=== PATIENT | female | born 1950 | race African-American/Black ===

== ENCOUNTER 2017-02-08 15:33 | Inpatient (IN) | payer MEDICARE, MEDICAID ==
--- NOTE | 2017-02-08 16:11 | RAD ---
SINGLE VIEW OF THE CHEST: 02/08/17 COMPARISON: 03/27/16 HISTORY: Fall four days ago with heart racing. FINDINGS: Single view of the chest shows an enlarged but stable cardiomediastinal silhouette. The pacemaker is unchanged in position. There is no evidence of consolidation, mass, or pleural effusion. IMPRESSION: Cardiomegaly without evidence of acute cardiopulmonary disease. POS: [facility]
[2017-02-08 16:27] LABS: #Eosinphils 0.1 thou/uL (0.0-0.7); #Lymphocytes 1.4 thou/uL (1.20-3.40); #Monocytes 0.7 thou/uL (0.11-0.59); #Neutrophils 3.9 thou/uL (1.40-6.50); %Basophils 0.4 % (0.0-1.0); %Eosinophils 2.2 % (0.0-10.0); %Lymphocytes 22.8 % (21.0-51.0); %Monocytes 11.7 % (0.0-10.0); Hematocrit 38.4 % (36.0-47.0); Mean Platelet Volume 9.6 fL (7.4-10.4); White Blood Cell (WBC) Count 6.1 thou/uL (4.8-10.8)
[2017-02-08 16:51] LABS: ALT (SGPT) 2919 U/L (8-55); AST (SGOT) 1760 U/L (5-34); Alkaline Phosphatase 171 U/L (40-150); Anion Gap 14 mmol/L (10-20); BUN (Urea Nitrogen) 95 mg/dL (9.8-20.1); Bilirubin, Total 1.4 mg/dL (0.2-1.2); CK (CPK) 632 U/L (29-168); Calc. Creatinine Clearance 0 mL/min (70-130); Calcium 8.6 mg/dL (7.8-10.44); Carbon Dioxide 28 mmol/L (23-31); Chloride 96 mmol/L (98-107); Estimated GFR-MDRD 12; Globulin 3.3 g/dL (2.4-3.5); Protein, Total 6.3 g/dL (6.0-8.3)
[2017-02-08 16:56] LABS: Troponin I 0.089 ng/mL (< 0.028)
[2017-02-08 17:21] LABS: Bilirubin Negative (Negative); Blood, Urine Negative (Negative); Glucose, Urine (Dipstick) Negative (Negative); Ketone, Urine Negative (Negative); Nitrite Negative (Negative); Protein, Urine (Dipstick) Negative (Neg-Trace)
[2017-02-08 17:23] LABS: Bacteria/HPF None Seen HPF (None Seen); RBC/HPF 0-3 HPF (0-3); Squamous Epithelial 0-3 HPF (0-3); WBC/HPF 0-3 HPF (0-3)
[2017-02-08] MEDS ORDERED: Ondansetron ODT 4 MG TAB PO PRN (20:25)
[2017-02-08] MEDS ORDERED: HumaLOG 300 UNITS/3 ML VIAL SC PRN (20:25)
[2017-02-08] MEDS ORDERED: HYDROcodone/Acetaminophen 5/325 mg Tablet PO PRN (20:25)
[2017-02-08] MEDS ORDERED: Dextrose 5% in Water 1,000 ML IV PRN (20:25)
[2017-02-08] MEDS ORDERED: HYDROcodone/Acetaminophen 10/325 mg Tablet PO PRN (20:25)
[2017-02-08] MEDS ORDERED: Dextrose 50% Abboject 50 ML SYRINGE SLOW IVP PRN (20:25)
[2017-02-08] MEDS ORDERED: Acetaminophen 325 MG TAB PO PRN (20:25)
[2017-02-08 20:38] VITALS: BMI 21.4
--- NOTE | 2017-02-08 20:42 | ULT ---
ULTRASOUND ABDOMEN LIMITED: (RIGHT UPPER QUADRANT) 02/08/17 HISTORY: 66-year-old female with right upper quadrant abdominal pain. FINDINGS: Gallbladder: Wall thickness within normal limits, 2 mm. No gallstones identified. No sonographic Mur phy's sign or pericholecystic edema. Questionable minimal sludge. Common duct: 7 mm Liver: Normal size and echogenicity. Questionable dilation of the intrahepatic biliary ducts. Pancreas: Poorly visualized. Right kidney: No hydronephrosis. Several cysts. Largest one is 2 x 1.5 x 1.5 cm at the upper/mid mirza e. Right kidney is also poorly visualized. IMPRESSION: 1. Dilation of the common duct to 7 mm caliber (and questionable dilation of the entire biliary tree). Recommend correlation with serum bilirubin levels to rule out the possibility of common bile duct obstruction. 2. No evidence of cholelithiasis or acute cholecystitis. MAC Puri POS: [facility]
[2017-02-08] MEDS: Sodium Chloride 0.9% 1,000 ML IV SCH (20:43)
[2017-02-08] MEDS: clonazePAM 1 MG TAB PO SCH (21:14)
[2017-02-08 21:41] LABS: Troponin I 0.075 ng/mL (< 0.028)
--- NOTE | 2017-02-08 23:18 | HP ---
DATE OF ADMISSION: 02/08/2017 PRIMARY CARE PHYSICIAN: Dr. Giles. PRIMARY PIPE SMOKER MACHINE OPERATOR: Dr. Fuentes. PRIMARY RENAL: Dr. Godoy. CHIEF COMPLAINT: \\\\"My heart is racing.\\\\" HISTORY OF PRESENT ILLNESS: Ms. Gabriel is a pleasant 66-year-old -[place] female who this m orning was lying in bed and felt like her heart just started to race on its own. She felt bad for t he rest of the day and so was brought to the emergency department for evaluation. She went to an [facility] emergency department after she fell and was dizzy. 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 She d id have a CT scan of the head that was negative, she had elevated LFTs and creatinine and was sent h ere for further workup. The patient denies any fevers or chills, no chest pain or shortness of breath at present. No nausea and vomiting, no diarrhea or constipation, no abdominal pain. PAST MEDICAL HISTORY: 1. Cerebrovascular disease with history of remote cerebrovascular accident. 2. Diabetes mellitus type 2, non-insulin dependent. 3. Hypertension. 4. Chronic anemia. 5. Hyperlipidemia, primary cholesterol. 6. Systolic congestive heart failure secondary to nonischemic cardiomyopathy with last ejection fra ction of 20% to 25% with severe global hypokinesis. 7. Gastroesophageal reflux disease. PAST SURGICAL HISTORY: Includes left enucleation, bilateral tubal ligation, left oophorectomy, bila teral corneal transplants, and AICD placement. HOME MEDICATIONS: 1. Clonazepam 0.5 mg p.o. at bedtime. 2. Vitamin D 1000 units daily. 3. Geodon 40 mg p.o. at bedtime. 4. Bupropion XR 300 mg p.o. daily. 5. Plavix 75 mg daily. 6. Lipitor 40 mg p.o. at bedtime. 7. Tradjenta 5 mg p.o. daily. 8. Lasix, she was on 40 in the morning and 80 in the evening, however, states she was decreased to 40 once a day by Dr. Godoy after she had labs that showed an increased creatinine. 9. Atorvastatin 40 mg p.o. at bedtime. 10. Isosorbide mononitrate extended release 120 mg daily. 11. Coreg 25 mg p.o. b.i.d. 12. Zoloft 100 mg daily. 13. Iron sulfate 325 mg daily. 14. Aspirin 81 mg daily. ALLERGIES: NKDA. FAMILY HISTORY: Negative for clotting or bleeding disorder, no immune dysfunction. SOCIAL HISTORY: Negative for habits x3. Her son accompanies her to the ER. REVIEW OF SYSTEMS: A 10-point review of systems was performed and negative for all other systems ex cept as stated per HPI. PHYSICAL EXAMINATION: VITAL SIGNS: Temperature 98.3, pulse 87, blood pressure initially was listed low, but per ER docume ntation showed blood pressure 136/67, respiratory rate 19, and satting 96% on room air. GENERAL: She is awake. She is alert. She is oriented x3. She is a chronically ill-appearing Afri can-[place] female who is lying in bed comfortably. HEENT: She is normocephalic, atraumatic, she has left enucleation, right pupil is 2-3 mm, round, an d reactive to light. Mucous membranes are moist. She has no visible lesions. No thrush. NECK: Supple, there is no lymphadenopathy, JVD or thyromegaly with normal carotid upstroke. LUNGS: Clear anteriorly. There are no wheezes, no rales, no rhonchi. CARDIOVASCULAR: She has normal S1 and S2, no S3, S4. She has a regular rhythm and normal rate. Th ere are no audible murmurs. ABDOMEN: Soft. It is nontender. She has no rebound, rigidity or guarding with normoactive bowel s ounds present in all 4 quadrants. Her extremities show no cyanosis, no clubbing with trace bilatera l pedal edema. SKIN: Warm, moist, and well perfused without any other rashes or lesions. MUSCULOSKELETAL: Normal to inspection. There are no inflamed joints and no palpable joint effusion s. LABORATORY DATA: CMP showed a sodium 134, potassium 3.8, chloride 96, bicarbonate 28, BUN 95, creat inine 4.41 up from 2.81 back on 01/24/2017 approximately 2 weeks ago. Liver functions showed alkaline phosphatase of 171, AST of 160, ALT of 2919, total bilirubin 1.4, al bumin of 3.0 and total protein 6.3. Troponin I was barely elevated at 0.089. CK elevated at 622 an d MB normal at 2.8. CBC showed a white count normal at 6.1, hemoglobin 12.1, hematocrit 38.4, and p latelets of 129,000. Her chest x-ray showed cardiomegaly, but no other acute cardiopulmonary change s. ASSESSMENT AND PLAN: 1. Acute kidney injury on chronic kidney disease 4: The patient has an increased BUN and creatinin e ratio: I think certainly she may be intravascular volume depleted secondary to diuretics. We herminia l start her on IV fluids at 70 mL per hour. We will ask Dr. Godoy to see her in the morning, repeat labs in the morning. In the meantime, we will hold her diuretics and her blood pressure medicines u ntil her blood pressure normalizes. 2. Diabetes mellitus type 2. We will hold her Tradjenta. We will use sliding scale insulin for co rrection. 3. Hypertension. Initial blood pressure was low according to the ER note, but I cannot locate thos e, she has been in the mid normal range since then. We will hold her blood pressure medicines until her creatinine improves. 3. Hyperlipidemia. 4. History of nonischemic cardiomyopathy with chronic systolic congestive heart failure: No eviden ce of acute exacerbation. Watch closely given the fact we are given some fluids. 5. Gastroesophageal reflux disease. 6. History of cerebrovascular disease. We will place the patient on admission status as well as Dr. Fonseca to come by and see the patien t per Dr. Fuentes and ask Dr. Godoy to evaluate for acute renal failure. We will recheck labs in the morning, watch the patient on telemetry, and hold all nephrotoxic medications. The patient did have an abdominal ultrasound done in the ER with report currently pending. Again, unsure if this is a p rimary liver problem, there is nothing grossly abnormal on her ultrasound, or whether this is a shoc k liver secondary to hypotension. We will get orthostatics on transfer to the floor.
[2017-02-09 06:02] LABS: #Basophils 0.1 thou/uL (0.0-0.2); #Eosinphils 0.2 thou/uL (0.0-0.7); #Lymphocytes 1.6 thou/uL (1.20-3.40); #Monocytes 0.8 thou/uL (0.11-0.59); #Neutrophils 3.1 thou/uL (1.40-6.50); %Basophils 1.1 % (0.0-1.0); %Lymphocytes 27.5 % (21.0-51.0); %Monocytes 13.4 % (0.0-10.0); Mean Platelet Volume 9.8 fL (7.4-10.4); Red Blood Cell (RBC) Count 4.32 mill/uL (4.20-5.40); White Blood Cell (WBC) Count 5.7 thou/uL (4.8-10.8)
[2017-02-09 06:19] LABS: ALT (SGPT) 2480 U/L (8-55); AST (SGOT) 1173 U/L (5-34); Alkaline Phosphatase 168 U/L (40-150); Anion Gap 16 mmol/L (10-20); BUN (Urea Nitrogen) 89 mg/dL (9.8-20.1); Bilirubin, Total 1.3 mg/dL (0.2-1.2); Calc. Creatinine Clearance 13 mL/min (70-130); Calcium 8.3 mg/dL (7.8-10.44); Carbon Dioxide 22 mmol/L (23-31); Chloride 101 mmol/L (98-107); Estimated GFR-MDRD 15; Globulin 3.4 g/dL (2.4-3.5); Protein, Total 6.3 g/dL (6.0-8.3)
[2017-02-09 06:23] LABS: Troponin I 0.077 ng/mL (< 0.028)
[2017-02-09] MEDS: Pantoprazole 40 MG GRANULES PACKET PO SCH (08:31)
[2017-02-09] MEDS: Bupropion 150 MG XL TAB PO SCH (08:31)
[2017-02-09] MEDS: Clopidogrel Bisulfate 75 MG TAB PO SCH (08:32)
[2017-02-09] MEDS: Carvedilol 25 MG TAB PO SCH ×2 (08:32→23:42)
[2017-02-09] MEDS: Sodium Chloride 0.9% 1,000 ML IV SCH (08:33)
[2017-02-09] MEDS ORDERED: Non-Formulary Item 1 EACH (Bupropion Hcl [Bupropion Hcl Xl] 300 MG) PO SCH (09:00)
[2017-02-09] MEDS ORDERED: ISOSORBIDE MONONITRATE PO SCH (09:00)
--- NOTE | 2017-02-09 09:48 | PDOC.PN ---
- Subjective Encounter Start Date: 02/09/17 Encounter Start Time: 09:25 Pt seen and exmained, chart reviewed. no acute events overnight. no F/c, no n/V/D/C. States she has been out of bed , no dizziness, no presyncope or syncope. no CP or SOB. Feels weak. Dsicused case with Dr Godoy, he provided additional history on non-adherence. 10 point ROS performed and neg for all systems except as above - Objective Resuscitation Status: Resuscitation Status FULL:Full Resuscitation MAR Reviewed: Yes Vital Signs & Weight: Vital Signs (12 hours) Temp Pulse Resp BP Pulse Ox 02/09/17 06:57 87 16 139/72 93 L 02/09/17 04:00 98.7 F 84 18 145/72 H 95 I&O: 02/08/17 02/09/17 02/10/17 06:59 06:59 06:59 Intake Total 932 Output Total 500 Balance 432 Result Diagrams: 02/09/17 05:26 02/09/17 05:26 Additional Labs: Accuchecks 02/09/17 02/08/17 05:52 20:42 POC Glucose 130 H 124 H Radiology Reviewed by me: Yes EKG Reviewed by me: Yes Phys Exam - Physical Examination Constitutional: NAD HEENT: moist MMs, sclera anicteric, oral pharynx no lesions Neck: no nodes, no JVD, supple, full ROM Respiratory: no wheezing, no rales, no rhonchi faint bibasilar crackles, stable Cardiovascular: RRR, no rub HSM LUSB present 3/6 Gastrointestinal: soft, non-tender, no distention, positive bowel sounds Musculoskeletal: no edema, pulses present Neurological: non-focal, normal sensation, moves all 4 limbs Lymphatic: no nodes Psychiatric: normal affect, A&O x 3 Skin: no rash, normal turgor, cap refill <2 seconds Dx/Plan (1) JOVANY (acute kidney injury) Code(s): N17.9 - ACUTE KIDNEY FAILURE, UNSPECIFIED Status: Acute Comment: Cr improved, almost back to tram. Dr Godoy to see. continue gentle hydration for a few more hours then stop. AM labs (2) CKD (chronic kidney disease), stage III Code(s): N18.3 - CHRONIC KIDNEY DISEASE, STAGE 3 (MODERATE) Status: Chronic (3) Heart palpitations Code(s): R00.2 - PALPITATIONS Status: Acute Comment: none further, negative tele. (4) Increased liver enzymes Code(s): R74.8 - ABNORMAL LEVELS OF OTHER SERUM ENZYMES Status: Acute Comment: LFTs better today (5) Chronic systolic (congestive) heart failure Code(s): I50.22 - CHRONIC SYSTOLIC (CONGESTIVE) HEART FAILURE Status: Chronic Comment: stable. watch closely while on IV fluids. Requested cardiology consult for palitatiosn and history. Has AICD in, may need to interrogate (6) DM2 (diabetes mellitus, type 2) Status: Chronic Qualifiers: Diabetes mellitus complication status: with kidney complications Diabetes mellitus complication detail: with chronic kidney disease Diabetes mellitus termite helper insulin use: with [facility] use Chronic kidney disease stage: stage 3 (moderate) Qualified Code(s): E11.22 - Type 2 diabetes mellitus with diabetic chronic kidney disease; N18.3 - Chronic kidney disease, stage 3 ( moderate); N18.3 - Chronic kidney disease, stage 3 (moderate); Z79.4 - terminal makeup operator (current) use of insulin; Z79.4 - half-way (current) use of insulin; Z79.4 - half-way (current) use of insulin; Z79.4 - terminal makeup operator (current) use of insulin (7) HTN (hypertension) Code(s): I10 - ESSENTIAL (PRIMARY) HYPERTENSION Status: Chronic Qualifiers: Hypertension type: essential hypertension Qualified Code(s): I10 - Essential (primary) hypertension (8) Anemia associated with chronic renal failure Code(s): D63.1 - ANEMIA IN CHRONIC KIDNEY DISEASE Status: Chronic - Plan cont current plan of care, PT/OT * .
[2017-02-09] MEDS ORDERED: Lorazepam 0.5 MG TAB PO SCH (11:00)
--- NOTE | 2017-02-09 13:07 | RAD ---
SINGLE VIEW OF CHEST: Date: 02/09/17 COMPARISON: 02/08/17. HISTORY: Shortness of breath. FINDINGS: Single view of the chest shows an enlarged but stable cardiomediastinal silhouette. The pacemaker is unchanged in position. There is no evidence of consolidation, mass, or pleural effusion. IMPRESSION: Cardiomegaly without evidence of acute cardiopulmonary disease. POS: [facility]
--- NOTE | 2017-02-09 15:05 | CON ---
DATE OF CONSULTATION: 02/09/2017 NEPHROLOGY CONSULTATION REASON FOR CONSULTATION: Elevated creatinine. HISTORY OF PRESENT ILLNESS: This is a very pleasant 66-year-old female being seen at [facility] , presented to the hospital with feeling of tachycardia. The patient's creatinine was 4.4 on admiss ion yesterday, improved to 3.5, prior baseline between 2s and 3s and has been gradually worsening an d was admitted for cardiorenal syndrome. PAST MEDICAL HISTORY: Significant for chronic kidney disease, hypertension, anemia, history of stro ke, EF of 20%, GERD, history of left eye enucleation, tubal ligation, oophorectomy, cornea transplan t, and AICD. HOME MEDICATIONS: List reviewed. HOSPITAL MEDICATIONS: List reviewed. REVIEW OF SYSTEMS: A 15-point review of systems was performed and was negative except for positives noted above. GENERAL: Weakness- HEAD: Headache- NECK: No swelling or lumps. NOSE: No epistaxis or discharge. EYES: No diplopia or pain. RESPIRATORY: Dyspnea- CARDIOVASCULAR: Chest pain- GASTROINTESTINAL: Nausea- /TRAFFIC ADMINISTRATOR: Hematuria- MUSCULOSKELETAL: No joint pain. NEUROPSYCHIATIC SYSTEMS: No suicidal ideation. No ideation. SKIN: Denies any rash or ulcer. CONSTITUTIONAL: No fever or chills. PHYSICAL EXAMINATION: GENERAL: Patient is awake, alert. VITAL SIGNS: Afebrile, pulse 87, breathing at 16, blood pressure 139/72. GENERAL APPEARANCE AND MENTAL STATUS: Fair. HEAD/NECK: Normocephalic. Atraumatic. EYES: EOMI. No deformity. EARS: Clear. No ulcers. NOSE: Intact. No lesions. MOUTH: Clear. No discharge. THROAT: Clear. No exudate. LUNGS: Clear. No crackles. CARDIAC: S1, S2. No rub. ABDOMEN: Benign. BS+. GENITALIA/RECTUM: Dailey absent. BACK/EXTREMITIES: Edema 0+ Ulcer- NEUROLOGICAL: Alert and motor intact. SKIN: Rash- Bruise- LYMPHATICS: Edema- Ulcer- LABORATORY DATA: Show creatinine 3.1. ASSESSMENT AND RECOMMENDATIONS: 1. Acute kidney injury with chronic kidney disease stage IV, improved. 2. Hypertension, stable. 3. Anemia, stable. 4. Metabolic acidosis, stable. No indication for dialysis. We will follow along. 5. Medications based on glomerular filtration rate are appropriate.
--- NOTE | 2017-02-09 15:35 | CON ---
DATE OF CONSULTATION: 02/09/2017 REASON FOR CONSULTATION: Racing heart. PRIMARY CARE PROVIDER: Dr. Terry. HISTORY OF PRESENT ILLNESS: Ms. Gabriel is an unfortunate 66-year-old woman who is a patient of Dr. Nury Fuentes. She has a history of nonischemic cardiomyopathy. She recently states she had shortn ess of breath as well as racing heart. Her ICD was interrogated with no significant changes noted. No significant dysrhythmias are present. She states her shortness of breath has markedly improved. PAST MEDICAL HISTORY: CVA, diabetes mellitus, hypertension, hyperlipidemia, nonischemic cardiomyopa thy. PAST SURGICAL HISTORY: BTL, oophorectomy, AICD placement. HOME MEDICATIONS: Include clonazepam, Plavix, Lipitor, Tradjenta, Geodon, Lasix, iron, Zoloft, Core g, isosorbide, and aspirin. ALLERGIES: None. SOCIAL HISTORY: No current tobacco or alcohol use. REVIEW OF SYSTEMS: Ten-point review of systems is reviewed and as above, otherwise negative. PHYSICAL EXAMINATION: GENERAL: Patient is a pleasant female who is in no acute distress. The patient appears her stated age. VITAL SIGNS: Blood pressure 154/75, pulse 77 and temperature 97.3. NEUROLOGIC: The patient is alert and oriented times 3 with no focal neurologic deficits. HEENT: Sclerae without icterus. Mouth has moist mucous membranes with normal pallor. NECK: No JVD. Carotid upstroke brisk. No bruits bilaterally. LUNGS: Clear to auscultation with unlabored respirations. BACK: No scoliosis or kyphosis. CARDIAC: Regular rate and rhythm with normal S1 and S2. No S3 or S4 noted. No significant rubs, murmurs, thrills, or gallops noted throughout the precordium. PMI is not displaced. There is no parasternal heave. ABDOMEN: Soft, nontender, nondistended. No peritoneal signs present. No hepatosplenomegaly. No abnormal striae. EXTREMITIES: 2+ femoral and 2+ dorsalis pedis pulses. No cyanosis, clubbing, or edema. SKIN: No gross abnormalities. PERTINENT LABS: Urine culture positive for beta-hemolytic strep, hemoglobin 12.5, creatinine 3.59 with a GFR of 15, ALT/AST of 11/73 and 24/80 respectively. Peak troponin 0.077. IMPRESSION: 1. Racing rate. 2. Shortness of breath. 3. Nonischemic cardiomyopathy. RECOMMENDATIONS: Ms. Gabriel recent ICD was interrogated. It felt normal function. There was some adjustment in her A-V interval for improvement in her biventricular pacing. Lasix has been held due to elevated creatinine. She does appear somewhat volume contracted. Otherwise, I have no further recommendations.
[2017-02-09] MEDS ORDERED: ISOVUE-370 76%-LOCM 1 ML ONE (16:12)
[2017-02-09] MEDS ORDERED: Furosemide 40 MG/4 ML VIAL ONE ×2 (20:46)
[2017-02-09] MEDS ORDERED: ZIPRASIDONE HCL 40 MG PO SCH (21:00)
[2017-02-09] MEDS ORDERED: Furosemide 100 MG/10 ML VIAL SLOW IVP SCH (21:00)
[2017-02-09 21:11] LABS: Oxyhemoglobin 93.4 % (94.0-97.0); Sodium 137 mmol/L (135-148)
[2017-02-09 21:12] LABS: Mode NC
--- NOTE | 2017-02-09 21:24 | PRG ---
DATE OF SERVICE: 02/09/2017 SUBJECTIVE: This patient code carlos was called, because she became hypoxic. Earlier in the day ceferino patricio I was consulted, the patient's nurse had just given her the IV Lasix 80 mg which I have ordered. Chest x-ray and BNP are pending. The fluids were stopped on her yesterday. Right now, the sats hav e come back to 97 on 2 liters. I will be transferring her to a higher level of care either IMCU or ICU for closer monitoring. She is comfortable right now. We will monitor the BNP, chest x-ray and we will work with the consultants with Cardiology and Nephrology for further taking care of her. Chika snell exam did show some bibasilar rales and some coarse breath sounds. Again, she is satting 97% on 2 liters right now and she is doing well. I will do ABG and follow the results and give her as neede d neb treatments.
[2017-02-09 21:35] LABS: #Basophils 0.1 thou/uL (0.0-0.2); #Eosinphils 0.1 thou/uL (0.0-0.7); #Lymphocytes 2.1 thou/uL (1.20-3.40); #Monocytes 0.7 thou/uL (0.11-0.59); #Neutrophils 5.4 thou/uL (1.40-6.50); %Basophils 0.8 % (0.0-1.0); %Eosinophils 0.7 % (0.0-10.0); %Lymphocytes 25.1 % (21.0-51.0); %Monocytes 8.3 % (0.0-10.0); Hematocrit 45.5 % (36.0-47.0); Mean Platelet Volume 9.8 fL (7.4-10.4); Red Blood Cell (RBC) Count 4.81 mill/uL (4.20-5.40); White Blood Cell (WBC) Count 8.2 thou/uL (4.8-10.8)
[2017-02-09] MEDS ORDERED: Fentanyl 20 MCG/ML 250 ML ONE (21:37)
[2017-02-09 21:49] LABS: ALT (SGPT) 2351 U/L (8-55); AST (SGOT) 880 U/L (5-34); Alkaline Phosphatase 195 U/L (40-150); Anion Gap 18 mmol/L (10-20); BUN (Urea Nitrogen) 83 mg/dL (9.8-20.1); Bilirubin, Total 1.4 mg/dL (0.2-1.2); Calc. Creatinine Clearance 14 mL/min (70-130); Calcium 8.6 mg/dL (7.8-10.44); Carbon Dioxide 22 mmol/L (23-31); Chloride 101 mmol/L (98-107); Estimated GFR-MDRD 16; Globulin 4.1 g/dL (2.4-3.5); Protein, Total 7.4 g/dL (6.0-8.3)
[2017-02-09 21:52] LABS: Troponin I 0.052 ng/mL (< 0.028)
[2017-02-09 22:16] LABS: Oxyhemoglobin 97.3 % (94.0-97.0); Sodium 138 mmol/L (135-148)
[2017-02-09 22:17] LABS: Vent YES
[2017-02-09 22:18] LABS: Mechanical Tidal Volume 400 ml; Mode SIMV; Pressure Support 10 cmH2O
--- NOTE | 2017-02-09 22:23 | RAD ---
RADIOGRAPH CHEST 1 VIEW: Date: 02/09/2017 Time: 8:52 p.m. HISTORY: A 66-year-old female with respiratory distress. COMPARISON: 02/09/2017 at 10:47 a.m. FINDINGS: Cardiomegaly. Multilead left subclavian AICD. Pulmonary vascular engorgement. No willam pulmonary alveolar edema or consolidation. Mild blunting of the lateral costophrenic angles bilaterally. No pneumothorax. No consolidation. No interval change. IMPRESSION: 1. Cardiomegaly and borderline congestive changes. 2. Multilead automatic implantable cardioverter/defibrillator. 3. Small bilateral pleural effusions versus pleural thickening. 4. No interval change since earlier this morning. MAC [] POS: [facility]
--- NOTE | 2017-02-09 23:15 | RAD ---
RADIOGRAPH CHEST 1 VIEW: Date: 02/09/2017 Time: 9:27 p.m. HISTORY: A 66-year-old female, in respiratory distress, status post intubation. COMPARISON: 02/09/2017 at 8:52 p.m. FINDINGS: This is a supine image, which would be insensitive for pneumothorax detection. There is a new defib rillation paddle overlying the left lower lung zone, partially obscuring it. An endotracheal tube h as been placed, with the distal tip overlying the mid thoracic trachea. A right subclavian central venous catheter has been placed, with the distal tip overlying the SVC/right atrial junction. No ca rdiomegaly. There is deeper inspiration on the current study, and the lungs appear more lucent on t he current study, with no pulmonary edema or consolidation. Again noted is the multi-lead left subc lavian AICD. A nasogastric tube has been placed with the SidePort slightly inferior to the diaphrag m. IMPRESSION: 1. Status post intubation. 2. Status post nasogastric tube placement. 3. Status post right subclavian central venous catheter placement. 4. No acute cardiopulmonary findings. MAC [] POS: [facility]
[2017-02-09] MEDS: clonazePAM 1 MG TAB PO SCH (23:42)
[2017-02-09] MEDS: Fluticasone Propionate Nasal Spray 16 gm Bottle NASAL SCH (23:42)
--- NOTE | 2017-02-09 23:47 | CT ---
CT BRAIN NONCONTRAST: DATE: 02/09/2017 TIME: 10:31 p.m. HISTORY: A 66-year-old female with acute altered mental status. COMPARISON: 09/10/2015 FINDINGS: On the most inferior image slices, there is a new finding of a tube, either an orogastric tube or an endotracheal tube, which is transversely oriented in the nasopharyngeal airway, only partially imag ed. There is no acute calvarial fracture. No evidence of acute intraaxial or extraaxial hemorrhage. No obstructive hydrocephalus, mass effect, midline shift, or extraaxial fluid collection. Multiple mo derate sized and small regions of encephalomalacia and gliosis, including right parasagittal upper p osterior frontal lobe, right upper parietal lobe, left lateral frontal lobe, and right lateral infer ior frontal lobe. No interval change in the intracranial contents since 09/10/2015. IMPRESSION: 1. Multiple bilateral old cerebral infarctions, most of them in the bilateral middle cerebral arter y territories. 2. No acute intracranial findings. 3. A tube is looped in the nasopharyngeal airway, only partially imaged. MAC Puri POS: [facility]
--- NOTE | 2017-02-10 | CT ---
CTA THORAX WITH CONTRAST: DATE: 02/09/2017 TIME: 10:35 p.m. (Computed Tomographic Angiography, chest (noncoronary) with contrast material, and image post proces sing) (PE protocol) HISTORY: A 66-year-old female, in respiratory failure. TECHNIQUE: IV injection of iodinated contrast: Isovue. Scan acquisition timing attempted to coincide with iodinated contrast bolus reaching maximal density in pulmonary arteries. 3D MIP reconstructions. FINDINGS: Endotracheal tube distal tip is at the mid thoracic trachea. NG tube is in the stomach. No pneumot horax, pulmonary edema, pleural effusion, or consolidation. A thin layer of subsegmental atelectasi s abutting the right posterior pleural surface. Contrast material in numerous collateral blood vess els, circumferentially, around the cervical spine and upper thoracic spine, and left supraclavicular region and left shoulder. No pulmonary thromboembolism. No thoracic aortic aneurysm. Not enough IV contrast in the aorta to evaluate for dissection. Multilead AICD. Right subclavian central veno us catheter. No mediastinal or hilar lymphadenopathy. IMPRESSION: 1. No pulmonary thromboembolism. 2. Automatic implantable cardioverter/defibrillator. 3. Endotracheal tube, nasogastric tube, and right subclavian central venous catheter. 4. Multiple collateral vessels suggest high grade stenosis in the left upper extremity or upper med iastinal venous system. isa[] POS: [facility]
[2017-02-10] MEDS ORDERED: Fentanyl 20 MCG/ML 250 ML IVPB SCH ×2 (00:23→00:45)
[2017-02-10] MEDS ORDERED: Propofol 1,000 MG/100 ML VIAL IV PRN ×2 (00:23→00:45)
[2017-02-10] MEDS ORDERED: Lorazepam 2 MG/ML VIAL SLOW IVP PRN ×2 (00:23→00:45)
[2017-02-10] MEDS ORDERED: DISCONTINUE PREVIOUS NARCOTIC PAIN MEDICATIONS AND BENZODIAZEPINES FS SCH ×2 (00:23→00:45)
[2017-02-10] MEDS ORDERED: HYDROcodone/Acetaminophen 10/325 mg Tablet PO PRN (00:40)
[2017-02-10] MEDS ORDERED: HYDROcodone/Acetaminophen 5/325 mg Tablet PO PRN (00:40)
[2017-02-10 06:17] LABS: #Lymphocytes 2.3 thou/uL (1.20-3.40); #Monocytes 1.2 thou/uL (0.11-0.59); #Neutrophils 7.4 thou/uL (1.40-6.50); %Basophils 0.4 % (0.0-1.0); %Eosinophils 0.4 % (0.0-10.0); %Lymphocytes 21.2 % (21.0-51.0); %Monocytes 10.6 % (0.0-10.0); Hematocrit 40.6 % (36.0-47.0); Mean Platelet Volume 10.1 fL (7.4-10.4); Red Blood Cell (RBC) Count 4.46 mill/uL (4.20-5.40); White Blood Cell (WBC) Count 10.9 thou/uL (4.8-10.8)
[2017-02-10 06:24] LABS: ALT (SGPT) 1940 U/L (8-55); AST (SGOT) 706 U/L (5-34); Alkaline Phosphatase 167 U/L (40-150); Anion Gap 17 mmol/L (10-20); BUN (Urea Nitrogen) 86 mg/dL (9.8-20.1); Bilirubin, Total 1.7 mg/dL (0.2-1.2); Calc. Creatinine Clearance 14 mL/min (70-130); Calcium 8.5 mg/dL (7.8-10.44); Carbon Dioxide 22 mmol/L (23-31); Chloride 103 mmol/L (98-107); Estimated GFR-MDRD 17; Globulin 3.5 g/dL (2.4-3.5); Protein, Total 6.5 g/dL (6.0-8.3)
[2017-02-10] MEDS: Bupropion 150 MG XL TAB PO SCH (08:18)
[2017-02-10] MEDS: Pantoprazole 40 MG GRANULES PACKET PO SCH (08:19)
[2017-02-10] MEDS: Clopidogrel Bisulfate 75 MG TAB PO SCH (08:19)
[2017-02-10] MEDS: Carvedilol 25 MG TAB PO SCH ×2 (08:19→20:49)
[2017-02-10] MEDS: Fluticasone Propionate Nasal Spray 16 gm Bottle NASAL SCH ×2 (09:32→21:33)
--- NOTE | 2017-02-10 11:45 | PDOC.PN ---
- Subjective Encounter Start Date: 02/10/17 Encounter Start Time: 11:00 -: non-verbal PT seen on rounds, examined, case discussed iwth Dr Cano this mornign, discussed with Dr Lozano. PT develped SOB again last night, normal exam, trnasferred to ICU for closer monitoring. ABD showed severe resp acidosis with pH 7.15. Intubated, placed on vent. todya, sedation held, awake, on SIMV. per pulm, pt may have mild unduagnosed underlying COPD. daphney danielsons Pt awake, alert, nodding appropriately. orally intubated. plan to extubate early afternoon - Objective Resuscitation Status: Resuscitation Status FULL:Full Resuscitation MAR Reviewed: Yes Vital Signs & Weight: Vital Signs (12 hours) Temp Pulse Resp BP Pulse Ox 02/10/17 11:19 79 10 L 96 02/10/17 10:20 79 108/60 02/10/17 10:00 9 L 02/10/17 09:10 9 L 02/10/17 08:00 98.5 F 74 23 H 99 02/10/17 06:53 81 137/74 02/10/17 06:00 23 H 02/10/17 04:00 98.3 F 23 H 02/10/17 02:29 81 02/10/17 02:00 23 H 02/10/17 00:00 97.8 F 23 H Weight Weight 118 lb 9.739 oz Most Recent Monitor Data Heart Rate from ECG 79 NIBP 112/59 NIBP BP-Mean 80 Respiration from ECG 16 SpO2 96 I&O: 02/09/17 02/10/17 02/11/17 06:59 06:59 06:59 Intake Total 932 1180 159.3 Output Total 500 810 170 Balance 432 370 -10.7 Result Diagrams: 02/10/17 05:30 02/10/17 05:30 Additional Labs: Accuchecks 02/10/17 02/10/17 02/09/17 10:24 00:28 21:00 POC Glucose 98 115 H 142 H 02/09/17 02/09/17 19:19 16:48 POC Glucose 133 H 125 H Radiology Reviewed by me: Yes EKG Reviewed by me: Yes Phys Exam - Physical Examination Constitutional: NAD HEENT: PERRLA, moist MMs, sclera anicteric, oral pharynx no lesions oral ET tube Neck: no nodes, no JVD, supple, full ROM Respiratory: no wheezing, no rhonchi fine bibasilar crackles Cardiovascular: RRR, no significant murmur, no rub Gastrointestinal: soft, non-tender, no distention, positive bowel sounds Musculoskeletal: pulses present, edema present trace pedal Neurological: non-focal, normal sensation, moves all 4 limbs Lymphatic: no nodes Psychiatric: normal affect Skin: no rash, normal turgor, cap refill <2 seconds Dx/Plan (1) JOVANY (acute kidney injury) Code(s): N17.9 - ACUTE KIDNEY FAILURE, UNSPECIFIED Status: Resolved Comment : back to [facility] around 3. Dr Godoy following (2) CKD (chronic kidney disease), stage III Code(s): N18.3 - CHRONIC KIDNEY DISEASE, STAGE 3 (MODERATE) Status: Chronic (3) Heart palpitations Code(s): R00.2 - PALPITATIONS Status: Acute Comment: none further, negative tele. (4) Increased liver enzymes Code(s): R74.8 - ABNORMAL LEVELS OF OTHER SERUM ENZYMES Status: Acute Comment: LFTs continue to improve, suspect shock liver from IVVD on admit with JOVANY and increase LFTs, fall, orthostasis (5) Chronic systolic (congestive) heart failure Code(s): I50.22 - CHRONIC SYSTOLIC (CONGESTIVE) HEART FAILURE Status: Chronic Comment: stable. no signs of volume overload. off IV fluid,s CT angiogrma showed no evidence of fluid in lungs (6) DM2 (diabetes mellitus, type 2) Status: Chronic Qualifiers: Diabetes mellitus complication status: with kidney complications Diabetes mellitus complication detail: with chronic kidney disease Diabetes mellitus wolf hunter insulin use: with wolf hunter use Chronic kidney disease stage: stage 3 (moderate) Qualified Code(s): E11.22 - Type 2 diabetes mellitus with diabetic chronic kidney disease; N18.3 - Chronic kidney disease, stage 3 ( moderate); N18.3 - Chronic kidney disease, stage 3 (moderate); Z79.4 - nursing home (current) use of insulin; Z79.4 - supervisor esters and emulsifiers (current) use of insulin; Z79.4 - supervisor esters and emulsifiers (current) use of insulin; Z79.4 - supervisor esters and emulsifiers (current) use of insulin (7) HTN (hypertension) Code(s): I10 - ESSENTIAL (PRIMARY) HYPERTENSION Status: Chronic Qualifiers: Hypertension type: essential hypertension Qualified Code(s): I10 - Essential (primary) hypertension (8) Anemia associated with chronic renal failure Code(s): D63.1 - ANEMIA IN CHRONIC KIDNEY DISEASE Status: Chronic (9) Acute hypercapnic respiratory failure Code(s): J96.02 - ACUTE RESPIRATORY FAILURE WITH HYPERCAPNIA Status: Acute Comment: better today. nebs, vent support. extubate per pulm late today. continue nebs (10) COPD (chronic obstructive pulmonary disease) Status: Acute Qualifiers: COPD type: COPD with acute exacerbation Qualified Code(s): J44.1 - Chronic obstructive pulmonary disease with (acute) exacerbation - Plan * .
--- NOTE | 2017-02-10 11:59 | PRG ---
DATE OF SERVICE: 02/10/2017 SUBJECTIVE: This is a 66-year-old female being seen for acute kidney injury. The patient denies an y nausea, vomiting, or chest pain. PHYSICAL EXAMINATION: GENERAL: Patient is awake and alert. VITAL SIGNS: Afebrile, pulse 79, breathing at 16, blood pressure 100/58. GENERAL APPEARANCE AND MENTAL STATUS: Fair. HEAD/NECK: Normocephalic. Atraumatic. EYES: EOMI. No deformity. EARS: Clear. No ulcers. NOSE: Intact. No lesions. MOUTH: Clear. No discharge. THROAT: Clear. No exudate. LUNGS: Clear. No crackles. CARDIAC: S1, S2. No rub. ABDOMEN: Benign. BS+. GENITALIA/RECTUM: Dailey absent. BACK/EXTREMITIES: Edema 0+ Ulcer- NEUROLOGICAL: Alert and motor intact. SKIN: Rash- Bruise- LYMPHATICS: Edema- Ulcer- ASSESSMENT AND RECOMMENDATIONS: 1. Acute kidney injury with chronic kidney disease, stable. 2. Hypertension, stable. 3. Anemia, stable. 4. Congestive heart failure, continue Lasix. 5. Medications based on glomerular filtration rate are appropriate. No indication for dialysis at this time.
[2017-02-10 12:24] LABS: Hematocrit 40.3 % (36.0-47.0); Mean Platelet Volume 9.7 fL (7.4-10.4); Red Blood Cell (RBC) Count 4.38 mill/uL (4.20-5.40); White Blood Cell (WBC) Count 13.1 thou/uL (4.8-10.8)
[2017-02-10 12:42] LABS: Anion Gap 16 mmol/L (10-20); BUN (Urea Nitrogen) 90 mg/dL (9.8-20.1); Calc. Creatinine Clearance 14 mL/min (70-130); Calcium 8.5 mg/dL (7.8-10.44); Carbon Dioxide 24 mmol/L (23-31); Chloride 103 mmol/L (98-107); Estimated GFR-MDRD 16
[2017-02-10 12:46] LABS: Band 1 % (5-11); Burr Cells MODERATE= 6-15 cells (100X) (0-1/hpf); Elliptocytes SLIGHT = 2-5 cells (100X) (0-1/hpf); Neutrophil 63 % (42-75); Ovalocytes MODERATE= 6-15 cells (100X) (0-1/hpf); Polychromasia SLIGHT = 2-3 cells (100X) (0-2/hpf); Reactive Lymphocytes 6 % (0-10); Schistocytes SLIGHT = 2-5 cells (100X) (0-1/hpf); Target Cells SLIGHT = 2-5 cells (100X) (0-1/hpf); Vacuoles SLIGHT
[2017-02-10] MEDS ORDERED: cefTRIAXone\\ROCEPHIN 1 GM in Sodium Chloride 0.9% 100 ML IVPB SCH (16:00)
--- NOTE | 2017-02-10 17:51 | CON ---
DATE OF CONSULTATION: 02/10/2017 SERVICE: Pulmonary Medicine. INTERVAL HISTORY: Overnight, the patient had a slow increase in difficulty with breathing. This cu lminated in abrupt respiratory failure with hypercapnic acidosis. She ultimately was intubated. Th morning, she has essentially recovered. They diuresed her fairly aggressively overnight. She lewis d a significant amount of volume off. This morning, she is back on 21% FIO2 with a PEEP of 5 and br eathing comfortably. She has no complaints of chest discomfort, nausea, or vomiting. There were no overnight events otherwise. Originally, the patient came in to the hospital with an exacerbation o f heart failure. PHYSICAL EXAMINATION: VITAL SIGNS: Afebrile, pulse 86, blood pressure 100/55, respirations 16, saturation 90% on 21% FiO2 and a PEEP of 5. HEENT: Normocephalic, atraumatic. Sclerae are white, conjunctivae pink. Oral and nasal mucosa is moist without lesions. LUNGS: Decent air entry. Dependent crackles are present. HEART: Normal rate, regular. ABDOMEN: Soft, nontender, nondistended, bowel sounds positive. MUSCULOSKELETAL: No cyanosis or clubbing. There is no pitting in the bilateral lower extremities. NEUROLOGIC: Grossly nonfocal. PAST MEDICAL HISTORY: 1. History of CVA. 2. Type 2 diabetes mellitus. 3. Hypertension. 4. Chronic anemia. 5. Dyslipidemia. 6. Chronic systolic heart failure secondary to nonischemic cardiomyopathy (EF 20%). 7. Gastroesophageal reflux disease. PAST SURGICAL HISTORY: 1. Left eye enucleation. 2. Bilateral tubal ligation. 3. Left oophorectomy. 4. Corneal transplant, bilateral. 5. AICD placement. FAMILY HISTORY: Noncontributory. SOCIAL HISTORY: Negative for alcohol, tobacco or illicit drug use. She lives with family. She has no exposures to chemicals, dust asbestos or tuberculosis. ALLERGIES: No known drug allergies. MEDICATIONS: List of her inpatient medications was reviewed. Multiple updates were made. REVIEW OF SYSTEMS: Currently, the patient is awake and cooperative at bedside. She denies review o f systems including general, head, ears, eyes, nose, throat, cardiovascular, respiratory, GI, , mu sculoskeletal, neurologic, and skin other than mentioned in the HPI. LABORATORY DATA: WBC 10.9, hemoglobin 12.9, platelets 154,000. PH 7.31, pCO2 of 45, pO2 of 196 on 40% FiO2. Creatinine 3.27 and gently down trending. BUN 86, anion gap 17, bicarbonate 22. AST and ALT are both down trending. BNP is improving to 3600. Troponin is down trending to 0.052. Lactat e was unremarkable. Urinalysis is unremarkable. Urine culture growing beta hemolytic streptococcus . IMAGING: CTA of the chest demonstrates no evidence of an acute pulmonary embolism. AICD is in plac e. There is an endotracheal tube, nasogastric tube, and right subclavian central venous catheter in good position. Multiple collateral vessels suggest high grade stenosis of the left upper extremity . Chest x-ray demonstrates no acute cardiopulmonary abnormality. There is an interval placement of endotracheal tube. There is also a nasogastric tube in place. ASSESSMENT: 1. Acute hypoxic and hypercapnic respiratory failure. 2. Acute on chronic systolic heart failure, currently euvolemic. 3. Metabolic encephalopathy, resolved. 4. Hepatitis, likely secondary to passive congestion which is improving. PLAN: We will give the patient a spontaneous breathing trial. If she meets criteria, extubation wi ll be considered. This was a primarily hypercapnic respiratory event. She has a little bit of a pr olonged expiratory phase on the ventilator waveform. We will continue supportive care as well as ne bulized medications once she is extubated. Pulmonary Critical Care will continue to follow up for t he time being. CRITICAL CARE TIME: Thirty minutes.
[2017-02-10] MEDS: AMOXicillin 250 MG CAP PO SCH (20:49)
[2017-02-10] MEDS ORDERED: clonazePAM 1 MG TAB PO SCH (21:00)
[2017-02-11] MEDS: Clopidogrel Bisulfate 75 MG TAB PO SCH (08:29)
[2017-02-11] MEDS: Fluticasone Propionate Nasal Spray 16 gm Bottle NASAL SCH ×2 (08:29→22:39)
[2017-02-11] MEDS: Bupropion 150 MG XL TAB PO SCH (08:30)
[2017-02-11] MEDS: AMOXicillin 250 MG CAP PO SCH ×3 (08:30→21:38)
[2017-02-11] MEDS: Carvedilol 25 MG TAB PO SCH ×2 (08:31→21:35)
--- NOTE | 2017-02-11 10:50 | PRG ---
DATE OF SERVICE: 02/11/2017 SUBJECTIVE: Patient was seen and examined at bedside and overnight events noted. Patient denies an y shortness of breath or chest pain or palpitation. No history of nausea or vomiting or diarrhea or fever or chills or cramps. OBJECTIVE: GENERAL: This is a thin-built female in no apparent distress. VITAL SIGNS: Temperature 97.9, pulse 87, respiratory rate 18, blood pressure 126/60. HEENT: Atraumatic, normocephalic. Oral mucosa is moist. NECK: Supple. CARDIOVASCULAR: S1 and S2 heard, rate and rhythm regular. RESPIRATORY: Clear to auscultation. GASTROINTESTINAL: Abdomen is soft. MUSCULOSKELETAL: No tenderness, no edema. DERMATOLOGIC: No skin rash. NEUROLOGIC: Alert and awake and oriented X3. No focal neurologic deficits. Moving all the extremi ties. PSYCHIATRIC: Mood and affect normal. LABORATORY DATA: No labs done today. ASSESSMENT AND PLAN: 1. Acute kidney injury on chronic kidney disease. Monitor labs. 2. Hypertension, stable. 3. Anemia. 4. Cardiorenal syndrome. 5. Edema, controlled use. The patient is feeling much better. Monitor labs. Avoid nephrotoxins. We will follow.
--- NOTE | 2017-02-11 11:54 | PRG ---
DATE OF SERVICE: 02/11/2017 SERVICE: Pulmonary Medicine. INTERVAL HISTORY: The patient is doing really well from a respiratory standpoint. She denies any s hortness of breath or chest discomfort. Ever since extubation yesterday afternoon, she essentially returned to her usual state of health. She is fairly weak and has yet to be out of bed since being in the ICU. Otherwise, there were no events overnight. She is on room air and her saturations are excellent. PHYSICAL EXAMINATION: VITAL SIGNS: Afebrile, pulse 96, blood pressure 123/64, respirations 17 and saturation 96% on room air. GENERAL: Patient is awake and alert, in no apparent distress. LUNGS: Decent air entry. Minimal crackles dependently. HEART: Normal rate, regular. ABDOMEN: Soft, nontender and nondistended. Bowel sounds positive. MUSCULOSKELETAL: No cyanosis or clubbing. No pitting in the bilateral lower extremities. NEUROLOGIC: Grossly nonfocal. LABORATORY DATA: WBC 13.1, hemoglobin 12.7 and platelets 142,000. Differential remains normal. Ba nd counts were low. Creatinine 3.41, which is generally up trending. Basic metabolic profile is ot herwise unremarkable and her BUN is 90 and stable. Urine cultures growing beta hemolytic streptococ cus. ASSESSMENT: 1. Acute hypoxic and hypercapnic respiratory failure, resolved to likely baseline. 2. Chronic obstructive pulmonary disease, likely undiagnosed based on the ventilator waveforms. 3. Acute on chronic systolic heart failure, currently euvolemic. 4. Metabolic encephalopathy, resolved. 5. Hepatitis secondary to passive congestion, improving. PLAN: The patient has recovered to her usual state. We will work on mobilizing her. From a purely respiratory perspective, she is stable for transition out of the ICU. She will require outpatient evaluation of her lungs to determine whether or not she has chronic obstructive changes. If she herron s, she may benefit from long-acting beta agonist or anticholinergic medication. I will continue to follow the patient in the hospital for the time being.
--- NOTE | 2017-02-11 14:04 | PDOC.PN ---
- Subjective Encounter Start Date: 02/11/17 Encounter Start Time: 14:00 Subjective: f/u after acute hypoxic resp failure and likely COPD exacerbation. -: Also with CHF exacerbation now resolving. Intubated briefly but extubated -: 02/10 and stable. - Objective Resuscitation Status: Resuscitation Status FULL:Full Resuscitation MAR Reviewed: Yes Vital Signs & Weight: Vital Signs (12 hours) Temp Pulse Resp Pulse Ox 02/11/17 10:48 97.9 F 02/11/17 07:36 88 20 95 02/11/17 07:09 97.9 F 87 21 H 93 L 02/11/17 07:00 97.9 F 02/11/17 04:00 97.6 F Weight Weight 119 lb 14.903 oz Most Recent Monitor Data Heart Rate from ECG 94 NIBP 131/66 NIBP BP-Mean 90 Respiration from ECG 18 SpO2 97 I&O: 02/10/17 02/11/17 02/12/17 06:59 06:59 06:59 Intake Total 1180 978.3 900 Output Total 810 705 245 Balance 370 273.3 655 Result Diagrams: 02/10/17 12:15 02/10/17 12:15 Additional Labs: Accuchecks 02/11/17 02/11/17 02/10/17 10:26 05:43 23:15 POC Glucose 132 H 78 101 02/10/17 16:36 POC Glucose 99 Microbiology 02/08/17 17:54 Urine voided Urine Culture - Final Beta-hemolytic Streptococcus Laboratory Tests 02/08/17 02/08/17 02/08/17 16:17 16:17 20:48 Creatinine 4.41 H Lactic Acid AST 1760 H ALT 2919 H Ammonia Creatine Kinase 632 H Troponin I 0.089 H 0.075 H 02/09/17 02/09/17 02/09/17 05:26 05:26 21:07 Creatinine 3.59 H 3.45 H Lactic Acid AST 1173 H 880 H ALT 2480 H 2351 H Ammonia Creatine Kinase Troponin I 0.077 H 02/09/17 02/09/17 02/09/17 21:07 21:07 22:00 Creatinine Lactic Acid 1.4 AST ALT Ammonia 69 Creatine Kinase Troponin I 0.052 H 02/10/17 05:30 Creatinine 3.27 H Lactic Acid AST 706 H ALT 1940 H Ammonia Creatine Kinase Troponin I Radiology Reviewed by me: Yes (2D echo(2014) - EF 20-25%, mod TR, mod AI) EKG Reviewed by me: Yes (Tele - Paced in 's) Phys Exam - Physical Examination Constitutional: NAD alert, responsive HEENT: sclera anicteric, oral pharynx no lesions Neck: no JVD, supple Respiratory: no wheezing, clear to auscultation bilateral Cardiovascular: RRR Gastrointestinal: soft, non-tender, no distention, positive bowel sounds Musculoskeletal: no edema, pulses present Neurological: normal sensation, moves all 4 limbs Psychiatric: A&O x 3 Skin: normal turgor, cap refill <2 seconds Dx/Plan (1) Acute on chronic systolic CHF (congestive heart failure) Code(s): I50.23 - ACUTE ON CHRONIC SYSTOLIC (CONGESTIVE) HEART FAILURE Status : Acute Comment: Last EF in 2014 showing 20-25%, repeat 2D echo today, continue to monitor fluid status and I/O's (2) Acute hypercapnic respiratory failure Code(s): J96.02 - ACUTE RESPIRATORY FAILURE WITH HYPERCAPNIA Status: Acute Comment: extubated without complication 02/10, pulmonary support, Duonebs, outpt PFT's (3) DM2 (diabetes mellitus, type 2) Status: Chronic Qualifiers: Diabetes mellitus complication status: with kidney complications Diabetes mellitus complication detail: with chronic kidney disease Diabetes mellitus buttermaker helper insulin use: with buttermaker helper use Chronic kidney disease stage: stage 3 (moderate) Qualified Code(s): E11.22 - Type 2 diabetes mellitus with diabetic chronic kidney disease; N18.3 - Chronic kidney disease, stage 3 ( moderate); N18.3 - Chronic kidney disease, stage 3 (moderate); Z79.4 - terminal operator (current) use of insulin; Z79.4 - terminal operator (current) use of insulin; Z79.4 - terminal operator (current) use of insulin; Z79.4 - terminal operator (current) use of insulin (4) HTN (hypertension) Code(s): I10 - ESSENTIAL (PRIMARY) HYPERTENSION Status: Chronic Qualifiers: Hypertension type: essential hypertension Qualified Code(s): I10 - Essential (primary) hypertension Comment: Stable, continue serial monitoring (5) JOVANY (acute kidney injury) Code(s): N17.9 - ACUTE KIDNEY FAILURE, UNSPECIFIED Status: Resolved Comment : back to pts [facility] around 3. Dr Godoy following (6) Chronic kidney disease (CKD), stage IV (severe) Code(s): N18.4 - CHRONIC KIDNEY DISEASE, STAGE 4 (SEVERE) Status: Acute Comment: Avoid nephrotoxic agents and contrast media - Plan hawk catheter, continue antibiotics, PT/OT, case management social worker, respiratory therapy, DVT proph w/SCDs Stable currently -: Check 2D echo -: Continue Amoxil 250mg TID -: Continue ASA and Plavix -: AM lab: BMP * Transfer to Tele * Likely home in 24h
[2017-02-12 06:46] LABS: Anion Gap 13 mmol/L (10-20); BUN (Urea Nitrogen) 91 mg/dL (9.8-20.1); Calc. Creatinine Clearance 16 mL/min (70-130); Calcium 8.3 mg/dL (7.8-10.44); Carbon Dioxide 23 mmol/L (23-31); Chloride 104 mmol/L (98-107); Estimated GFR-MDRD 18
[2017-02-12] MEDS: AMOXicillin 250 MG CAP PO SCH ×3 (10:23→21:42)
[2017-02-12] MEDS: Carvedilol 25 MG TAB PO SCH ×2 (10:24→21:43)
[2017-02-12] MEDS: Clopidogrel Bisulfate 75 MG TAB PO SCH (10:25)
[2017-02-12] MEDS: Fluticasone Propionate Nasal Spray 16 gm Bottle NASAL SCH ×2 (10:25→21:43)
[2017-02-12] MEDS: Bupropion 150 MG XL TAB PO SCH (10:25)
--- NOTE | 2017-02-12 10:35 | PRG ---
DATE OF SERVICE: 02/12/2017 SUBJECTIVE: Patient was seen and examined at bedside and overnight events noted. Patient denies an y shortness of breath or chest pain or palpitation. No history of nausea or vomiting or diarrhea or fever or chills or cramps. OBJECTIVE: GENERAL: This is a thin-built female in no apparent distress. VITAL SIGNS: Temperature 98.7, pulse 82, respiratory rate 16, blood pressure 112/63. HEENT: Atraumatic, normocephalic. Oral mucosa is moist. NECK: Supple. CARDIOVASCULAR: S1 and S2 heard, rate and rhythm regular. RESPIRATORY: Clear to auscultation. GASTROINTESTINAL: Abdomen is soft. MUSCULOSKELETAL: No tenderness, no edema. DERMATOLOGIC: No skin rash. NEUROLOGIC: Alert and awake and oriented X3. No focal neurologic deficits. Moving all the extremi ties. PSYCHIATRIC: Mood and affect normal. LABORATORY DATA: Potassium is 4.2, BUN is 91, creatinine is 3.1. ASSESSMENT AND PLAN: 1. Acute kidney injury on chronic kidney disease stage 3. Renal function with slight improvement c ontinues to get better. Creatinine is getting better from 4.4 on admission to 3.1 today. Continue to monitor. Avoid nephrotoxins. 2. Hypertension. Blood pressure seems to be stable. Continue current medications, limit salt in t he diet. 3. Anemia. Monitor hemoglobin. 4. Cardiorenal syndrome. 5. Edema, controlled. Use p.r.n. Lasix. 6. Overall, renal function continues to get better. Avoid nephrotoxins. We will follow.
--- NOTE | 2017-02-12 16:38 | PDOC.PN ---
- Subjective Encounter Start Date: 02/12/17 Encounter Start Time: 16:20 Subjective: [facility] Currently feeling fine -: and no new complaints. - Objective Resuscitation Status: Resuscitation Status FULL:Full Resuscitation MAR Reviewed: Yes Vital Signs & Weight: Vital Signs (12 hours) Temp Pulse Pulse Pulse Resp BP BP 02/12/17 13:15 90 14 02/12/17 08:47 83 82 130/62 135/66 02/12/17 08:00 98.4 F 89 18 02/12/17 07:54 87 80 136/73 129/65 02/12/17 06:46 90 14 Pulse Ox Pulse Ox Pulse Ox 02/12/17 13:15 02/12/17 08:47 95 97 02/12/17 08:00 95 02/12/17 07:54 97 97 02/12/17 06:46 Weight Weight 123 lb 3.2 oz Most Recent Monitor Data Heart Rate from ECG 96 NIBP 112/64 NIBP BP-Mean 79 Respiration from ECG 19 SpO2 96 I&O: 02/11/17 02/12/17 02/13/17 06:59 06:59 06:59 Intake Total 978.3 1888 Output Total 705 1035 Balance 273.3 853 Result Diagrams: 02/10/17 12:15 02/12/17 05:30 Additional Labs: Accuchecks 02/12/17 02/12/17 11:07 06:38 POC Glucose 114 H 86 EKG Reviewed by me: Yes (Tele - V-paced in 90's) Phys Exam - Physical Examination Constitutional: NAD HEENT: moist MMs, oral pharynx no lesions Neck: no JVD, supple Respiratory: no wheezing Cardiovascular: RRR Gastrointestinal: soft, non-tender, no distention, positive bowel sounds Musculoskeletal: no edema, pulses present Neurological: normal sensation, moves all 4 limbs Psychiatric: A&O x 3 Skin: normal turgor, cap refill <2 seconds Dx/Plan (1) Acute on chronic systolic CHF (congestive heart failure) Code(s): I50.23 - ACUTE ON CHRONIC SYSTOLIC (CONGESTIVE) HEART FAILURE Status : Acute Comment: Last EF in 2014 showing 20-25%, repeat 2D echo today, continue to monitor fluid status and I/O's (2) Acute hypercapnic respiratory failure Code(s): J96.02 - ACUTE RESPIRATORY FAILURE WITH HYPERCAPNIA Status: Acute Comment: extubated without complication 02/10, pulmonary support, Duonebs, outpt PFT's (3) DM2 (diabetes mellitus, type 2) Status: Chronic Qualifiers: Diabetes mellitus complication status: with kidney complications Diabetes mellitus complication detail: with chronic kidney disease Diabetes mellitus intermediate insulin use: with intermediate use Chronic kidney disease stage: stage 3 (moderate) Qualified Code(s): E11.22 - Type 2 diabetes mellitus with diabetic chronic kidney disease; N18.3 - Chronic kidney disease, stage 3 ( moderate); N18.3 - Chronic kidney disease, stage 3 (moderate); Z79.4 - assisted (current) use of insulin; Z79.4 - veterinarian assistant (current) use of insulin; Z79.4 - veterinarian assistant (current) use of insulin; Z79.4 - assisted (current) use of insulin Comment: Continue Tradjenta 5mg daily (4) HTN (hypertension) Code(s): I10 - ESSENTIAL (PRIMARY) HYPERTENSION Status: Chronic Qualifiers: Hypertension type: essential hypertension Qualified Code(s): I10 - Essential (primary) hypertension Comment: Stable, continue serial monitoring (5) JOVANY (acute kidney injury) Code(s): N17.9 - ACUTE KIDNEY FAILURE, UNSPECIFIED Status: Resolved Comment : Stable and improving, near baseline GFR, recheck creatinine in am (6) Chronic kidney disease (CKD), stage IV (severe) Code(s): N18.4 - CHRONIC KIDNEY DISEASE, STAGE 4 (SEVERE) Status: Acute Comment: Avoid nephrotoxic agents and contrast media - Plan PT/OT, social services counselor, respiratory therapy, out of bed/ambulate, DVT proph w/ SCDs Stable overall -: Continue ASA 81mg daily -: Continue Amoxil 250mg TID -: Avoid nephrotoxic meds/contrast -: AM lab: BMP * Likely home in am
[2017-02-13 07:01] LABS: Anion Gap 11 mmol/L (10-20); BUN (Urea Nitrogen) 77 mg/dL (9.8-20.1); Calc. Creatinine Clearance 20 mL/min (70-130); Calcium 8.6 mg/dL (7.8-10.44); Carbon Dioxide 26 mmol/L (23-31); Chloride 106 mmol/L (98-107); Estimated GFR-MDRD 23
--- NOTE | 2017-02-13 08:33 | PRG ---
Patient Name: AUGUST JUAREZ Date of service: 02/13/2017 Subjective: Patient was seen and examined at bedside and overnight events noted. Patient denies any shortness of breath or chest pain or palpitation. No history of nausea or vomiting or diarrhea or fever or chills or cramps. Objective: General: This is a well-built female in no apparent distress Vital signs: Temperature 98.6, pulse 97, respirations 16, blood pressure 110/64. HEENT: Atraumatic, normocephalic. Oral mucosa is moist. Neck: Supple. Cardiovascular: S1 S2 heard. Rate and rhythm regular. Respiratory: Clear to auscultation. Gastrointestinal: Abdomen is soft. Musculoskeletal: No tenderness. No edema. Dermatologic: No skin rash. Neurologic: Alert and awake and oriented X3. No focal neurologic deficits. Moving all the extremi ties. Psychiatric: Mood and affect normal. LABORATORY DATA: Potassium is 4.2, BUN 77, creatinine is 2.5. ASSESSMENT AND PLAN: 1. Acute kidney injury on chronic kidney disease. Renal function continues to get better. Avoid n ephrotoxins. 2. Hypertension, stable. 3. Anemia. Monitor hemoglobin. 4. Cardiorenal syndrome. 5. Edema, controlled. 6. Renal function continues to get better. Avoid nephrotoxins. Okay to discharge from Nephrology standpoint. Follow up with Dr. Godoy in a week. Will follow.
[2017-02-13] MEDS ORDERED: Atorvastatin Calcium 40 MG TAB PO SCH (09:00)
[2017-02-13] MEDS ORDERED: Alogliptin Benzoate 25 MG TABLET PO SCH (09:00)
[2017-02-13] MEDS: Bupropion 150 MG XL TAB PO SCH (10:15)
[2017-02-13] MEDS: AMOXicillin 250 MG CAP PO SCH ×2 (10:16→14:34)
[2017-02-13] MEDS: Clopidogrel Bisulfate 75 MG TAB PO SCH (10:16)
[2017-02-13] MEDS: Carvedilol 25 MG TAB PO SCH (10:16)
[2017-02-13] MEDS: Fluticasone Propionate Nasal Spray 16 gm Bottle NASAL SCH (10:16)
--- NOTE | 2017-02-13 10:29 | PRG ---
DATE OF SERVICE: 02/12/2017 SERVICE: Pulmonary Medicine. INTERVAL HISTORY: The patient is doing okay from a respiratory standpoint. She denies any shortnes s of breath or chest discomfort. There were no overnight events. PHYSICAL EXAMINATION: VITAL SIGNS: Afebrile, pulse 80, blood pressure 131/73, respirations 14, saturation 99% on 2 liters nasal cannula. GENERAL: The patient is awake and alert, in no apparent distress. LUNGS: Decent air entry with no prolonged expiratory phase, wheezing, rhonchi or crackles. HEART: Normal rate, regular. ABDOMEN: Soft, nontender, nondistended. Bowel sounds are positive. MUSCULOSKELETAL: No cyanosis or clubbing. There is no pitting in the bilateral lower extremities. NEUROLOGIC: Grossly nonfocal. LABORATORY DATA: Creatinine 3.10 and stable. Basic metabolic profile is otherwise unremarkable exc ept for a BUN of 91. Urine culture is growing beta hemolytic streptococcus. ASSESSMENT: 1. Acute hypoxic and hypercapnic respiratory failure, resolving to baseline. 2. Chronic obstructive pulmonary disease, likely undiagnosed, but this is based on ventilator wavef orms. 3. Acute on chronic systolic heart failure, currently euvolemic. 4. Metabolic encephalopathy, resolved. 5. Urinary tract infection secondary to Streptococcus. PLAN: We will focus on moving the patient a little more aggressively today. She would benefit from a followup with Pulmonary in the outpatient setting to determine whether or not she has any chronic obstructive lung disease. I will continue to follow up for the time being while the patient remain s in house. From a purely lung standpoint, the patient is stable for transition out of the hospital . If she remains in house, I will continue to follow. We will aggressively work on mobilization to day.
--- NOTE | 2017-02-13 16:00 | DIS ---
DATE OF ADMISSION: 02/08/2017 DATE OF DISCHARGE: 02/13/2017 DISCHARGE DIAGNOSES: 1. Acute on chronic systolic congestive heart failure with ejection fraction of 20%-25%, improved. 2. Nonischemic cardiomyopathy with ejection fraction of 25%. 3. Status post acute hypercapnic hypoxic respiratory failure, multifactorial, resolved. 4. Acute kidney injury on chronic kidney disease stage 4, improved. 5. Diabetes mellitus type 2, stable. 6. Hypertension, stable. 7. Deconditioning. 8. Urinary tract infection with Streptococcus species. CONSULTATIONS: Dr. Cano with Pulmonology Service. Dr. Dozier and Dr. Godoy with Nephrology Serv ice. Dr. Fonseca with Cardiology Service. PERTINENT LABORATORY DATA AND X-RAY FINDINGS: Creatinine ranged between 2.50-4.41 with estimated GF R ranging between 12-23, AST ranged between 706-1760, ALT ranged between 9336-1252. BNP ranged betw een 8544-2795. CBC showed a white blood cell count ranging between 5.7-13.1, hemoglobin 13, hematoc rit 40. Urine culture dated 02/08/2017 showed 50,000-75,000 colonies of beta hemolytic Streptococcu s species. Portable chest x-ray dated 02/08/2017 showed cardiomegaly without acute process. Abdomi nal ultrasound dated 02/08/2017 showed dilation of the common duct at 7 mm. No evidence of cholelit hiasis or acute cholecystitis. CT of the brain without contrast dated 02/09/2017 showed multiple bi lateral old cerebral infarcts. No acute intracranial process identified. Portable chest x-ray date d 02/09/2017 showed cardiomegaly without acute process. CT angiogram of the chest dated 02/09/2017 showed no evidence for pulmonary embolus. Multiple collateral vessels suggesting high-grade stenosi s of the left upper extremity or upper mediastinal venous system. HOSPITAL COURSE: Patient was initially admitted to the telemetry unit after presenting with palpita tions in the context of known nonischemic cardiomyopathy with ejection fraction in the 25% range wit h AICD placement. The patient underwent extensive evaluation including metabolic and radiographic e valuation showing evidence of acute kidney injury in the context of chronic kidney disease stage 4 a s well as transaminitis. The patient underwent evaluation by the Cardiology Service including inter rogation of her pacemaker ICD device showing a normal functioning mechanism. The patient received g eneral supportive measures including avoidance of nephrotoxic agents and mild fluid resuscitation du e to acute kidney injury. The patient was evaluated by the Nephrology Service with conservative man agement and modification to chronic medication regimen. Serial monitoring of creatinine showed over all improved values with avoidance of diuretic therapy and nephrotoxic agents. The patient decompen sated during her hospital course, apparently becoming unresponsive with acute hypoxic respiratory fa ilure. The patient was transferred to the Critical Care Unit at which point the patient was placed on mechanical ventilation. The patient was noted with respiratory acidosis and elevated pCO2. The patient was monitored in the ICU for approximately 48 hours extubating without complication and barragan sitioning off oxygen therapy to maintain O2 saturations in the 90% range on room air. The suspected etiology was decompensated congestive heart failure in conjunction with possible undiagnosed chroni c obstructive pulmonary disease or underlying lung disease. The patient rapidly clinically improved and was transferred to the telemetry unit, stabilizing clinically. The patient did receive empiric antibiotic therapy with urine culture showing 50,000-75,000 colonies of Streptococcus species. The patient was continued on amoxicillin 250 mg t.i.d. and will complete antibiotic course on discharge . Overall, the patient remained clinically stable through the remainder of the hospital course and ready for discharge on 02/13/2017. DISCHARGE MEDICATIONS: 1. Amoxicillin 250 mg 1 tab p.o. t.i.d. x5 days. 2. Enteric-coated aspirin 81 mg 1 tab p.o. daily. 3. Lipitor 40 mg 1 tab p.o. daily. 4. Carvedilol 25 mg p.o. b.i.d. 5. Vitamin D3 1000 units p.o. daily. 6. Plavix 75 mg 1 tab p.o. daily. 7. Docusate sodium 100 mg p.o. daily. 8. Ferrous sulfate 325 mg p.o. daily. 9. Lasix 40 mg p.o. b.i.d., hold until follow up with Nephrology Service. 10. Isosorbide mononitrate 60 mg p.o. daily. 11. Tradjenta 5 mg p.o. daily. 12. Protonix 40 mg p.o. daily. 13. Sertraline 150 mg p.o. daily. 14. Ziprasidone 40 mg p.o. at bedtime. 15. Bupropion 300 mg p.o. daily. 16. Klonopin 1 mg p.o. at bedtime. FOLLOWUP: The patient will follow up with her primary care provider, Dr. Zane Giles within 7 days of discharge. Patient will follow up with Dr. Godoy with Nephrology Service, call his office for ap pointment time and date. Patient will follow up with Dr. Cano with Pulmonology Service and to ca ll his office for appointment time and date. The patient will follow up with [facility] in [place] and to call their office for appointment time and date. CONDITION ON DISCHARGE: Fair. ACTIVITY: Ad shanique. Rolling walker for ambulation. SPECIAL INSTRUCTIONS: The patient to receive ongoing home health services through [facility]. DIET: Heart healthy/ADA. CODE STATUS: FULL. DISPOSITION: Home, 02/13/2017. Total time preparing and coordinating discharge is 36 minutes.
[2017-02-13 16:11] VITALS: BP 132/65; TEMP 99.3
--- NOTE | 2017-02-13 18:17 | PRG ---
DATE OF SERVICE: 02/13/2017 SERVICE: Pulmonary Medicine. INTERVAL HISTORY: The patient is doing great from a respiratory standpoint. On room air, her satur ations are doing fantastic. She has no significant work of breathing. She feels that she is return ing to her usual state of health and is being planned for discharge today. Otherwise, there has bee n no change to her condition and there were no overnight events. PHYSICAL EXAMINATION: VITAL SIGNS: Afebrile with T-max of 99.6, pulse 97, blood pressure 133/72, respirations 16, and sat uration 97% on room air. GENERAL: Patient is awake, alert, in no apparent distress. LUNGS: Decent air entry with minimal dependent crackles. HEART: Normal rate, regular. ABDOMEN: Soft, nontender, and nondistended. Bowel sounds positive. MUSCULOSKELETAL: No cyanosis or clubbing. No pitting in the bilateral lower extremities. NEUROLOGIC: Grossly nonfocal. LABORATORY DATA: Creatinine 2.50 and down trending. BUN 77 and also down trending. Basic metaboli c profile is otherwise unremarkable. ASSESSMENT: 1. Acute hypoxic and hypercapnic respiratory failure, resolved at baseline. 2. Chronic obstructive pulmonary disease, suspected based on the ventilator waveforms. 3. Acute on chronic systolic heart failure, currently euvolemic. 4. Metabolic encephalopathy, resolved. 5. Urinary tract infection secondary to Streptococcus. PLAN: At this point, the patient is on room air. She has no further requirements for inpatient Pul monary or Critical Care opinion. As such, we will sign off. I would like to see her in my clinic i n the outpatient setting in roughly 4 weeks to investigate whether or not there is true underlying o bstructive lung disease. I will sign off at this time. Please call with additional questions or co ncerns.
[2017-02-13] MEDS ORDERED: FLU VACC TS2017-18 (>65YR) 0.5 ML SYRINGE IM ONE (21:00)
== END 2017-02-13 16:52 | disposition home or self-care (01) | DRG 682 ==
LOC: ERS 15:33 → 2NO 18:00 → CCU 02-09 21:25 → 2NO 02-11 16:25
PROVIDERS: ADMIT Internal Medicine Infectious Disease; ATTEND Internal Medicine Infectious Disease
PROC: 5A1945Z Respiratory Ventilation, 24-96 Consecutive Hours (ICD-10-PCS; principal; 2017-02-10)
PROC: 0BH17EZ Insertion of Endotracheal Airway into Trachea, Via Natural or Artificial Opening (ICD-10-PCS; 2017-02-10)
PROC: 0BP1XDZ Removal of Intraluminal Device from Trachea, External Approach (ICD-10-PCS; 2017-02-10)
DX: N17.9 Acute kidney failure, unspecified (principal); I50.23 Acute on chronic systolic (congestive) heart failure; G93.41 Metabolic encephalopathy; J96.01 Acute respiratory failure with hypoxia; J96.02 Acute respiratory failure with hypercapnia; I42.8 Other cardiomyopathies; E87.2 Acidosis; E11.9 Type 2 diabetes mellitus without complications; B95.5 Unspecified streptococcus as the cause of diseases classified elsewhere; N39.0 Urinary tract infection, site not specified; I13.0 Hypertensive heart and chronic kidney disease with heart failure and stage 1 through stage 4 chronic kidney disease, or unspecified chronic kidney disease; J44.9 Chronic obstructive pulmonary disease, unspecified; N18.4 Chronic kidney disease, stage 4 (severe); K75.9 Inflammatory liver disease, unspecified; D64.9 Anemia, unspecified; K21.9 Gastro-esophageal reflux disease without esophagitis; Z86.73 Personal history of transient ischemic attack (TIA), and cerebral infarction without residual deficits
CPT/HCPCS: 36415; 36416; 70450; 71010; 71275; 76705; 80048; 80053; 81003; 81015; 82140; 82553; 82805; 83605; 83690; 83880; 84484; 85025; 87086; 90471; 90682; 93005; 93306; 93798; 94002; 94003; 94640; A4216; G0008; G8978-GP-CN; G8979-GP-CI; G8987-GO-CK; G8988-GO-CI; J0696; J1940; J3010; J7050; J7620; Q2036

== ENCOUNTER 2017-02-19 19:02 | Emergency (ER) | payer MEDICARE, MEDICAID ==
[2017-02-19 19:47] LABS: #Basophils 0.1 thou/uL (0.0-0.2); #Eosinphils 0.2 thou/uL (0.0-0.7); #Lymphocytes 2.2 thou/uL (1.20-3.40); #Monocytes 0.9 thou/uL (0.11-0.59); %Basophils 0.7 % (0.0-1.0); %Eosinophils 2.6 % (0.0-10.0); %Monocytes 12.2 % (0.0-10.0); Hematocrit 38.1 % (36.0-47.0); Mean Platelet Volume 9.8 fL (7.4-10.4); Red Blood Cell (RBC) Count 3.99 mill/uL (4.20-5.40); White Blood Cell (WBC) Count 7.2 thou/uL (4.8-10.8)
[2017-02-19 20:11] LABS: ALT (SGPT) 324 U/L (8-55); AST (SGOT) 145 U/L (5-34); Alkaline Phosphatase 132 U/L (40-150); Anion Gap 12 mmol/L (10-20); BUN (Urea Nitrogen) 50 mg/dL (9.8-20.1); Bilirubin, Total 0.8 mg/dL (0.2-1.2); CK (CPK) 119 U/L (29-168); Calc. Creatinine Clearance 0 mL/min (70-130); Calcium 8.6 mg/dL (7.8-10.44); Carbon Dioxide 25 mmol/L (23-31); Chloride 104 mmol/L (98-107); Estimated GFR-MDRD 24; Globulin 3.5 g/dL (2.4-3.5); Lipase 64 U/L (8-78); Protein, Total 6.6 g/dL (6.0-8.3)
[2017-02-19 20:17] LABS: Troponin I 0.037 ng/mL (< 0.028)
--- NOTE | 2017-02-19 20:32 | RAD ---
AP VIEW CHEST 02/19/17 HISTORY: Altered mental status. AP view chest is obtained on 02/19/17. Comparison made to previous exam from 02/09/17. AP view chest demonstrates the lungs to be well aerated. Nasogastric and endotracheal tubes have bee n removed. A dual lead intracardiac defibrillator is seen. Cardiomegaly is noted. No evidence of eff usions, pneumonia or pneumothorax seen. IMPRESSION: Unremarkable AP view chest. POS: [facility]
--- OUTSIDE RECORDS SUMMARY | 2017-02-21 12:40 | XMS | Clinical Summary ---
:1950 Author Organization [facility] Address [address] [place] [address] Phone Care Team Providers Name Role Phone , Primary Care Provider Unavailable Allergies Not on File Current Medications Not on file Active Problems Not on file Social History Tobacco Use Types Packs/Day Years Used Date Never Assessed Sex Assigned at Date Recorded Not on file Last Filed Vital Signs Not on file Plan of Treatment Not on file Results Not on filefrom Last 3 Months
--- OUTSIDE RECORDS SUMMARY | 2017-02-21 12:40 | XMS | Clinical Summary ---
:1950 Author Organization [facility] Address [address] [place] [address] Phone Care Team Providers Name Role Phone [...]
== END 2017-02-19 20:48 | disposition home or self-care (01) ==
LOC: ERS 19:02
DX: I13.2 Hypertensive heart and chronic kidney disease with heart failure and with stage 5 chronic kidney disease, or end stage renal disease (principal); I50.9 Heart failure, unspecified; N18.6 End stage renal disease; E11.22 Type 2 diabetes mellitus with diabetic chronic kidney disease; K21.9 Gastro-esophageal reflux disease without esophagitis; E78.00 Pure hypercholesterolemia, unspecified; F41.9 Anxiety disorder, unspecified; F32.9 Major depressive disorder, single episode, unspecified
CPT/HCPCS: 36415; 71010; 80053; 82550; 82553; 83690; 83880; 84484; 85025; 93005

== ENCOUNTER 2017-02-25 14:14 | Observation (INO) | payer MEDICARE, OTHER ==
--- OUTSIDE RECORDS SUMMARY | 2017-02-25 14:57 | XMS | Clinical Summary ---
:1950 Author Organization [facility] Address [address] [place] [address] Phone Care Team Providers Name Role Phone [...]
--- OUTSIDE RECORDS SUMMARY | 2017-02-25 14:57 | XMS | Clinical Summary ---
:1950 Author Organization [facility] Address [address] [place] [address] Phone Care Team Providers Name Role Phone [...]
--- NOTE | 2017-02-25 15:42 | RAD ---
PORTABLE UPRIGHT FRONTAL CHEST RADIOGRAPH 02/25/2017 COMPARISON: 02/19/2017 HISTORY: Shortness of breath. FINDINGS: There is a stable 3-lead transvenous pacing device inserted via a left-sided approach. No pneumotho rax is noted. There is mild blunting of bilateral costophrenic angles which may signify mild pleura l thickening under small-volume pleural fluid. There is mild pulmonary vascular congestion with no lobar consolidation or alveolar edema. IMPRESSION: Mild blunting of costophrenic angles. Pulmonary vascular congestion without overt edema or lobar co nsolidation. POS: [facility]
[2017-02-25 16:42] LABS: #Eosinphils 0.1 thou/uL (0.0-0.7); #Lymphocytes 1.6 thou/uL (1.20-3.40); #Monocytes 0.7 thou/uL (0.11-0.59); #Neutrophils 5.3 thou/uL (1.40-6.50); %Basophils 0.5 % (0.0-1.0); %Eosinophils 1.2 % (0.0-10.0); %Lymphocytes 20.5 % (21.0-51.0); %Monocytes 9.2 % (0.0-10.0); Hematocrit 38.5 % (36.0-47.0); Mean Platelet Volume 9.3 fL (7.4-10.4); Red Blood Cell (RBC) Count 4.04 mill/uL (4.20-5.40); White Blood Cell (WBC) Count 7.8 thou/uL (4.8-10.8)
[2017-02-25 17:07] LABS: ALT (SGPT) 123 U/L (8-55); AST (SGOT) 55 U/L (5-34); Alkaline Phosphatase 121 U/L (40-150); Anion Gap 12 mmol/L (10-20); BUN (Urea Nitrogen) 40 mg/dL (9.8-20.1); Bilirubin, Total 0.6 mg/dL (0.2-1.2); CK (CPK) 57 U/L (29-168); Calc. Creatinine Clearance 0 mL/min (70-130); Calcium 8.7 mg/dL (7.8-10.44); Carbon Dioxide 22 mmol/L (23-31); Chloride 105 mmol/L (98-107); Estimated GFR-MDRD 27; Globulin 3.3 g/dL (2.4-3.5); Lipase 37 U/L (8-78); Protein, Total 6.4 g/dL (6.0-8.3)
[2017-02-25 17:10] LABS: Troponin I 0.048 ng/mL (< 0.028)
[2017-02-25] MEDS ORDERED: Nitroglycerin 2% Ointment 1 INCH/1 GM Packet ONE (18:16)
[2017-02-25] MEDS ORDERED: Ondansetron HCl/PF 4 MG/2 ML Vial ONE (18:16)
[2017-02-25] MEDS ORDERED: Furosemide 40 MG/4 ML VIAL ONE (18:46)
[2017-02-25] MEDS ORDERED: Acetaminophen 325 MG TAB PO PRN (21:13)
[2017-02-25] MEDS ORDERED: Dextrose 50% Abboject 50 ML SYRINGE SLOW IVP PRN (21:13)
[2017-02-25] MEDS ORDERED: Lorazepam 1 MG TAB PO PRN (21:13)
[2017-02-25] MEDS ORDERED: Guaifenesin DM 100-10/5 ML UDCUP PO PRN (21:13)
[2017-02-25] MEDS ORDERED: Dextrose 5% in Water 1,000 ML IV PRN (21:13)
[2017-02-25] MEDS ORDERED: HumaLOG 300 UNITS/3 ML VIAL SC PRN ×2 (21:13)
[2017-02-25] MEDS ORDERED: Benzonatate 100 MG CAP PO PRN (21:13)
[2017-02-25] MEDS ORDERED: Nitroglycerin 0.4 MG TAB (25 Tab Bottle) SL PRN (21:13)
[2017-02-25] MEDS ORDERED: Senokot 8.6 MG TAB PO PRN ×2 (21:13)
[2017-02-25] MEDS ORDERED: Calcium Carbonate 500 MG ChewTAB PO PRN (21:13)
[2017-02-25] MEDS ORDERED: hydrALAZINE 20 MG/ML VIAL SLOW IVP PRN (21:13)
[2017-02-25] MEDS ORDERED: Diabetic Tussin 200 MG/10 ML UDCUP PO PRN (21:13)
[2017-02-25] MEDS ORDERED: cloNIDine 0.1 MG TAB PO PRN (21:13)
[2017-02-25] MEDS ORDERED: Loratadine 10 MG TAB PO PRN (21:13)
[2017-02-25] MEDS ORDERED: Mag-Al 1200 mg/1200 mg/30 ML UDCUP PO PRN (21:13)
[2017-02-25] MEDS ORDERED: Bisacodyl 5 MG TAB PO PRN ×2 (21:13)
[2017-02-25] MEDS ORDERED: Ondansetron HCl/PF 4 MG/2 ML Vial IVP PRN (21:13)
[2017-02-25] MEDS ORDERED: Acetaminophen 325 MG TAB ONE (21:50)
[2017-02-25 22:21] LABS: Troponin I 0.046 ng/mL (< 0.028)
[2017-02-25 22:47] VITALS: BMI 21.9
[2017-02-26 01:08] LABS: Troponin I 0.042 ng/mL (< 0.028)
[2017-02-26] MEDS: traMADol HCl 50 MG TAB PO PRN ×2 (01:11→09:45)
[2017-02-26] MEDS ORDERED: Sodium Chloride 0.9% 10 ML ONE (05:17)
[2017-02-26 05:28] LABS: Bacteria/HPF None Seen HPF (None Seen); Hyaline Casts/LPF 0-3 HYALINE CAST LPF (0-3 Hyaline); RBC/HPF None Seen HPF (0-3); Squamous Epithelial 0-3 HPF (0-3); WBC/HPF None Seen HPF (0-3)
[2017-02-26 05:31] LABS: Bilirubin Negative (Negative); Blood, Urine Negative (Negative); Glucose, Urine (Dipstick) Negative (Negative); Ketone, Urine Negative (Negative); Nitrite Negative (Negative); Protein, Urine (Dipstick) Negative (Neg-Trace); Urobilinogen 0.2 mg/dL (0.2-1.0)
[2017-02-26 05:57] LABS: Anion Gap 10 mmol/L (10-20); BUN (Urea Nitrogen) 40 mg/dL (9.8-20.1); Calc. Creatinine Clearance 21 mL/min (70-130); Calcium 8.7 mg/dL (7.8-10.44); Carbon Dioxide 24 mmol/L (23-31); Chloride 106 mmol/L (98-107); Estimated GFR-MDRD 25
[2017-02-26 06:35] LABS: #Basophils 0.1 thou/uL (0.0-0.2); #Eosinphils 0.2 thou/uL (0.0-0.7); #Lymphocytes 2.7 thou/uL (1.20-3.40); #Monocytes 0.7 thou/uL (0.11-0.59); #Neutrophils 3.3 thou/uL (1.40-6.50); %Basophils 0.9 % (0.0-1.0); %Eosinophils 2.7 % (0.0-10.0); %Monocytes 10.1 % (0.0-10.0); Elliptocytes MODERATE= 6-15 cells (100X) (0-1/hpf); Hematocrit 37.7 % (36.0-47.0); Mean Platelet Volume 9.6 fL (7.4-10.4); Red Blood Cell (RBC) Count 3.98 mill/uL (4.20-5.40); White Blood Cell (WBC) Count 6.9 thou/uL (4.8-10.8)
[2017-02-26] MEDS: Furosemide 40 MG/4 ML VIAL SLOW IVP SCH ×2 (06:37→14:09)
--- NOTE | 2017-02-26 07:52 | HP ---
DATE OF ADMISSION: 02/25/2017 Please note that the patient was seen on 02/25/2017 before midnight. PRIMARY CARE PHYSICIAN: Dr. Zane Giles. CHIEF COMPLAINT: Shortness of breath. HISTORY OF PRESENT ILLNESS: Ms. Gabriel is a very pleasant 66-year-old -Citizen Of [place] female with past medical history of chronic systolic congestive heart failure, nonischemic cardiomyopathy with a n EF of 25%, status post AICD, as well as recent clinical diagnosis of COPD, who presented to the em ergency room with the above-mentioned complaints. History is mainly obtained by the patient herself and electronic medical records have been reviewed. The patient was actually admitted earlier this month from 02/08/2017 to 02/13/2017 for similar complaints. At that time, she was treated for acute on chronic systolic congestive heart failure and was also diagnosed with COPD. She required intuba tion and mechanical ventilation during the last hospitalization. At that time, she was found to hav e acute on chronic kidney injury as well as transaminitis. She was seen by Cardiology and pacemaker ICD device interrogation was done, which was shown to have a normal functioning mechanism. Ms. Gabriel came to the emergency room today when she started to experience some shortness of breath at home associated with some diaphoresis. She has home health care provider who was with her during this episode and assisted her to sit down. After receiving oxygen, she started to feel a little be tter, but decided to come to the emergency room to get it checked out. The patient reports that she has been compliant with her medications. She, however, denies that she received any inhalers or ne bulizers at the time of her discharge from the hospital a couple weeks ago. Though she was seen by pulmonary medicine at that time, the patient does not recall this. She denies any fever or chills o r cough. She does have some difficulty lying flat on the bed and worsening shortness of breath with exertion. Upon presentation to the emergency room, her oxygen saturation was 95% on room air with blood pressu re of 141/101 and pulse of 86. Physical examination was consistent with decreased breath sound at b ases and chest x-ray was consistent with pulmonary vascular congestion. Further workup revealed jenifer vated BNP to 4352, which was 1687, 1 week ago. Cardiac enzymes are in indeterminate range and creat inine is 2.23, which seems to be better than her baseline. She received 1 dose of IV Lasix in the E mergency Room along with oral aspirin and is now being admitted to telemetry floor for respiratory distress, likely secondary to acute congestive heart exacerbation. At the time of my examination, the patient is lying comfortably in bed without any respiratory distr ess. She is not requiring any oxygen and is able to converse in full sentences without any difficul ty. PAST MEDICAL HISTORY: 1. Chronic systolic congestive heart failure. 2. Nonischemic cardiomyopathy, status post AICD placement. 3. History of cerebrovascular accident. 4. Diabetes mellitus type 2. 5. Hypertension. 6. Chronic anemia. 7. Dyslipidemia. 8. Gastroesophageal reflux disease. 9. Possible chronic obstructive pulmonary disease. PAST SURGICAL HISTORY: 1. Left eye enucleation. 2. Bilateral tubal ligation. 3. Left oophorectomy. 4. Bilateral corneal transplant. 5. AICD placement. ALLERGIES: No known medication allergies. FAMILY HISTORY: No history of premature coronary artery disease, stroke, hypertension. SOCIAL HISTORY: She lives by herself and is independent to a certain extent. She has home health c [facility] provider that stays with her. No history of drug, tobacco or alcohol abuse. CURRENT MEDICATIONS: Carvedilol 25 mg p.o. b.i.d., atorvastatin 40 mg daily, aspirin 81 mg daily, T ylenol as needed Extra Strength, ferrous sulfate 325 mg daily, docusate 100 mg every 2 days, Plavix 75 mg daily, vitamin D3 of 1000 units daily, isosorbide mononitrate half tablet daily, Lasix 40 mg p .o. b.i.d., bupropion 300 mg daily, ziprasidone 40 mg at bedtime, sertraline 150 mg daily, Protonix 40 mg daily, linagliptin 5 mg daily, and clonazepam half 1-mg tablet by mouth. REVIEW OF SYSTEMS: The following complete review of systems was negative, unless otherwise mentione d in the HPI or below: CONSTITUTIONAL: Weight loss or gain, ability to conduct usual activities. SKIN: Rash, itching. EYES: Double vision, pain. ENT/MOUTH: Nose bleeding, neck stiffness, pain, tenderness. CARDIOVASCULAR: Palpitations, dyspnea on exertion, orthopnea. RESPIRATORY: Shortness of breath, wheezing, cough, hemoptysis, fever or night sweats. GASTROINTESTINAL: Poor appetite, abdominal pain, heartburn, nausea, vomiting, constipation, or diar eleazar. GENITOURINARY: Urgency, frequency, dysuria, nocturia. MUSCULOSKELETAL: Pain, swelling. NEUROLOGIC/PSYCHIATRIC: Anxiety, depression. ALLERGY/IMMUNOLOGIC: Skin rash, bleeding tendency. LABORATORY DATA: CBC shows WBCs at 7.8 with 68% neutrophils, hemoglobin 11.7, otherwise unremarkabl e. Serum chemistries: Sodium 134, bicarbonate 22, BUN 40, creatinine 2.23. AST 55, ALT 123. All of her liver enzymes are still trending down, during her last hospitalization 2 weeks ago they were as high as in the thousands range. Total bilirubin normal, CK-MB normal. Troponin 0.048. BNP 4352 , lipase 37. Chest x-ray by my review shows mild pulmonary vascular congestion without any signific ant evidence of consolidation. Twelve-lead EKG shows paced rhythm by my review. PHYSICAL EXAMINATION: VITAL SIGNS: Most recent vital signs include temperature 98.6, pulse of 101, respirations 18, satur ating 96% on room air, blood pressure 136/78. GENERAL: No acute distress, awake, alert, oriented x3, lying comfortably in bed without using oxyge n. Appears nontoxic. HEENT: Mucous membrane is moist and pink. No oropharyngeal exudate or erythema. Head is normoceph alic, atraumatic. She has an absent left eye. Extraocular movements are intact in the right eye an d right pupil is reactive to light. NECK: Supple without any lymphadenopathy, JVD or bruit. CHEST: Clear to auscultation with decreased breath sounds at bases without any significant wheezing . CARDIOVASCULAR: Rate and rhythm is regular without any murmur, rubs or gallops. ABDOMEN: Soft, nontender, nondistended, positive bowel sounds. EXTREMITIES: Free of any cyanosis, clubbing, or edema. NEUROLOGIC: Nonfocal. SKIN: Free of any rashes or bruises, feels warm and dry to touch. PSYCHIATRIC: Normal affect. VASCULAR: +2 pedal pulses felt bilaterally. IMPRESSION AND PLAN: 1. Acute on chronic systolic congestive heart failure. The patient will be treated with IV Lasix a t this time. She is hemodynamically stable and her symptoms are mild. Monitor I's and O's and resu me oral Lasix after a few more doses of IV Lasix. If patient remains stable, she can be discharged later in the day tomorrow. We will defer the decision to the day team at this time. The patient wi ll need to follow up with the Heart Failure Clinic and will be educated about heart failure once aga in. She will follow up with Cardiology, Dr. Fuentes as an outpatient. 2. Elevated cardiac enzymes. These are in the indeterminate range. We will continue to trend seri al cardiac enzymes. This is likely secondary to mild fluid overload. Continue with her home medica tions of aspirin, statin and beta-santos. The patient does not seen to be on TISHA inhibitor, likely secondary to chronic renal insufficiency 3. Elevated liver enzymes. The liver enzymes are trending down from her last admission, which was secondary to passive hepatic congestion. 4. Diabetes mellitus type 2. We will resume her home medications and provide insulin sliding scale with frequent Accu-Cheks for further coverage. 5. History of nonischemic cardiomyopathy, status post AICD, we will resume her home medications as stated above. 6. Hypertension. The patient has diastolic hypertension upon presentation to the ER, which is impr oving. We will resume home medications. 7. History of cerebrovascular accident. 8. Gastroesophageal reflux disease. 9. Deep venous thrombosis and gastrointestinal prophylaxis. 10. Code status: FULL CODE. Discussed with the patient. DISPOSITION: The patient is currently being admitted to telemetry floor under observation status fo r mild acute congestive heart failure exacerbation. Estimated length of stay at this time is less t gruber 2 midnights. Further management will depend upon her clinical course. She can be changed to in patient status if her clinical improvement is slow or if she worsens.
[2017-02-26] MEDS ORDERED: Carvedilol 25 MG TAB PO SCH (08:00)
[2017-02-26] MEDS ORDERED: Ferrous Sulfate 325 MG TAB PO SCH (08:00)
[2017-02-26] MEDS ORDERED: Alogliptin Benzoate 6.25 MG TABLET PO SCH (09:00)
[2017-02-26] MEDS ORDERED: Atorvastatin Calcium 40 MG TAB PO SCH (09:00)
[2017-02-26] MEDS ORDERED: Pantoprazole 40 MG GRANULES PACKET PO SCH (09:00)
[2017-02-26] MEDS ORDERED: Heparin 5,000 UNITS/ML VIAL SC SCH (09:00)
[2017-02-26] MEDS ORDERED: Clopidogrel Bisulfate 75 MG TAB PO SCH (09:00)
[2017-02-26] MEDS ORDERED: Docusate 100 MG CAP PO SCH (09:00)
[2017-02-26] MEDS ORDERED: Bupropion 150 MG XL TAB PO SCH (09:00)
[2017-02-26 09:41] VITALS: TEMP 98.8
--- NOTE | 2017-02-26 10:25 | CON ---
DATE OF CONSULTATION: 02/26/2017 CONSULTING PHYSICIAN: Dr. Robles. REASON FOR CONSULTATION: Acute kidney injury. REASON FOR ADMISSION: Shortness of breath. HISTORY OF PRESENT ILLNESS: This is a 66-year-old -[place] female who was recently discharg ed from the hospital with history of CHF, severe cardiomyopathy with EF of 20%-25%, and COPD, who ca me to the hospital with shortness of breath and has been treated for CHF exacerbation. She is curre ntly on furosemide 40 mg IV b.i.d. and her creatinine is stable, but slightly elevated. She does lewis ve chronic kidney disease stage 4 and her baseline creatinine is 2.2. She was found to be at her ba seline. She even have a peak of 4.4 two weeks back during her previous admission. The patient is f eeling a little bit better. No nausea, vomiting, no fever or chills. No skin rash reported. PAST MEDICAL HISTORY: Positive for CHF, severe cardiomyopathy, cerebrovascular accident, type 2 jose miguel betes, hypertension, anemia, hyperlipidemia, GERD, COPD. PAST SURGICAL HISTORY: Left eye enucleation, bilateral tubal ligation, left oophorectomy, bilateral corneal transplant, AICD placement. HOME MEDICATIONS: Carvedilol, atorvastatin, aspirin, Tylenol, ferrous sulfate, docusate, Plavix, vi tamin D3, isosorbide mononitrate, Lasix, ziprasidone, Protonix, sertraline, linagliptin, and clonaze raudel. ALLERGIES: No known drug allergies. SOCIAL HISTORY: No smoking, alcohol or illicit drug abuse. FAMILY HISTORY: No history of kidney disease. REVIEW OF SYSTEMS: The following complete review of systems was negative, unless otherwise mentione d in the HPI or below: Constitutional: Weight loss or gain, ability to conduct usual activities. Skin: Rash, itching. Eyes: Double vision, pain. ENT/Mouth: Nose bleeding, neck stiffness, pain, tenderness. Cardiovascular: Palpitations, dyspnea on exertion, orthopnea. Respiratory: Shortness of breath, wheezing, cough, hemoptysis, fever or night sweats. Gastrointestinal: Poor appetite, abdominal pain, heartburn, nausea, vomiting, constipation, or diar eleazar. Genitourinary: Urgency, frequency, dysuria, nocturia. Musculoskeletal: Pain, swelling. Neurologic/Psychiatric: Anxiety, depression. Allergy/Immunologic: Skin rash, bleeding tendency. LABORATORY DATA: Hemoglobin is 11.1, sodium is 136, potassium 4.1, BUN 40, creatinine is 2.3. BNP is 4352. ASSESSMENT AND PLAN: 1. Acute kidney injury on chronic kidney disease stage 4 secondary to cardiorenal syndrome. Agree with above and close monitoring of renal function and electrolytes and replace as needed. 2. Severe cardiomyopathy with cardiorenal syndrome, last EF was 15%-20% with very poor long-term pr ognosis and high risk for free admissions. 3. Elevated cardiac enzymes. 4. Hypertension, stable. 5. Edema. 6. Anemia. Overall long-term prognosis is poor. Continue to follow with Cardiology for optimization of cardiac medications. Okay with the Lasix for now. Continue close monitoring of electrolytes and renal fun ction and potassium level is stable now at 4.1. Recommend checking magnesium and potassium closely and titrating diuretic dose. We will follow.
[2017-02-26 12:28] VITALS: BP 128/67
--- NOTE | 2017-02-26 13:26 | DIS ---
DATE OF ADMISSION: 02/25/2017 DATE OF DISCHARGE: 02/26/2017 DISCHARGE DIAGNOSES: 1. Acute exacerbation of systolic congestive heart failure. 2. Chronic kidney disease stage 3. 3. Nonischemic cardiomyopathy as above. Last ejection fraction of 15-20%. 4. History of cerebrovascular disease with cerebrovascular accident. 5. Diabetes mellitus type 2. 6. Hypertension. 7. Chronic anemia, likely secondary to anemia of renal disease. 8. Hyperlipidemia. 9. Gastroesophageal reflux disease. 10. Probable chronic obstructive pulmonary disease without acute exacerbation. CONSULTATIONS: Nephrology, Dr. Dozier. PROCEDURES: None. HISTORY AND PHYSICAL: Ms. Gabriel is a pleasant 66-year-old -[place] female, whom I know fro m admission a couple weeks ago. At that time, she was being admitted for shortness of breath and wa s found to be in acute on chronic systolic CHF. She was discharged home in stable condition. She p resented back to the emergency department last night for increased shortness of breath. She had a l ittle bit of diaphoresis, but some dyspnea on exertion, PND and orthopnea. She got some oxygen, sta rted to feel better, but came to the emergency department to get checked up. In the emergency department, workup showed BNP of 4000, which was from 1600 a little over a week ago . Cardiac enzymes were in the indeterminate range with a creatinine of 2.23, stable for her. She r eceived dose of Lasix in the emergency department along with some oral aspirin and we were called fo r admission. HOSPITAL COURSE: The patient was seen and examined by Dr. Ericka Robles. The patient was placed in observation on telemetry and watched overnight. She received IV Lasix with adequate diuresis and b y morning was feeling much better and weaned off of oxygen quickly. The patient was seen by Renal who agreed with the Lasix at that time and will follow up with the jitendra newton. I spoke with the CHF clinic, and spoke with Dr. 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 Referral was made and appointments were made for her t o come as an outpatient. Through the morning, she stayed stable in 1 month's time and was stable for discharge with outpatien t followup. PHYSICAL EXAMINATION: The patient was seen and examined on the day of discharge. DISCHARGE PLAN: Disposition was discussed with the patient face to face at the bedside. DISCHARGE MEDICATIONS: 1. Tylenol 1000 mg q.6 hours p.r.n. 2. Aspirin 81 mg daily. 3. Atorvastatin 40 mg daily. 4. Carvedilol 25 mg p.o. b.i.d. 5. Vitamin D3 1000 units daily. 6. Plavix 75 mg daily. 7. Docusate 100 mg p.o. every other day. 8. Iron sulfate 325 mg daily. 9. Lasix 40 mg in the morning and 80 mg in the evening. 10. Isosorbide mononitrate 60 mg daily. 11. Tradjenta 5 mg daily. 12. Protonix 40 mg daily. 13. Zoloft 150 mg daily. 14. Sertraline 150 mg daily. 15. Zyprexa 40 mg p.o. at bedtime. 16. Bupropion HCL 300 mg daily. 17. Klonopin 0.5 mg p.o. at bedtime. FOLLOWUP APPOINTMENTS: 1. Primary care physician within a week. 2. Dr. Fuentes in the next couple of weeks. 3. CHF Clinic on 03/04/2017. PENDING LABS: None. DISCHARGE CONDITION: Stable. DISPOSITION: The patient is being discharged to home via private vehicle. INSTRUCTIONS: To return to the emergency department for worsening shortness of breath or new chest pain.
--- NOTE | 2017-03-02 18:13 | EKG ---
Test Reason : Blood Pressure : / mmHG Vent. Rate : 086 BPM Atrial Rate : 086 BPM P-R Int : 158 ms QRS Dur : 154 ms QT Int : 418 ms P-R-T Axes : 061 -66 035 degrees QTc Int : 500 ms Electronic ventricular pacemaker Confirmed by BAYLEE MCGOWAN M.D. ([id number]), marketing editor VIVI LOPEZ ([id number] on 03/02/2017 6:12:54 PM Referred By: Confirmed By:BAYLEE MCGOWAN M.D.
== END 2017-02-26 14:20 | disposition home or self-care (01) ==
LOC: ERS 14:14 → 2NO 19:32 → INTOOBSV 19:32
PROVIDERS: ADMIT Internal Medicine Infectious Disease; ATTEND Internal Medicine Infectious Disease
DX: I13.0 Hypertensive heart and chronic kidney disease with heart failure and stage 1 through stage 4 chronic kidney disease, or unspecified chronic kidney disease (principal); E11.22 Type 2 diabetes mellitus with diabetic chronic kidney disease; N18.3 Chronic kidney disease, stage 3 (moderate); I50.23 Acute on chronic systolic (congestive) heart failure; D63.1 Anemia in chronic kidney disease; I42.8 Other cardiomyopathies; E78.5 Hyperlipidemia, unspecified; K21.9 Gastro-esophageal reflux disease without esophagitis; Z79.82 Long term (current) use of aspirin; Z79.4 Long term (current) use of insulin; Z79.899 Other long term (current) drug therapy; Z90.721 Acquired absence of ovaries, unilateral; Z95.810 Presence of automatic (implantable) cardiac defibrillator; Z98.51 Tubal ligation status; Z98.890 Other specified postprocedural states; Z86.73 Personal history of transient ischemic attack (TIA), and cerebral infarction without residual deficits
CPT/HCPCS: 71010; 80048; 80053; 81001; 82550; 82553; 82962 ×2; 83690; 83880; 84484 ×3; 85025 ×2; 93005; 94640 ×2; 96374; 96375; 96376; 97139; 99285; G0378 ×2; 36415; 36416; A4216; J1644; J1940; J2405; J7620

== ENCOUNTER 2017-03-02 02:53 | Inpatient (IN) | payer MEDICARE, OTHER ==
[~2017-03-02 02:53] MED LIST: Rocuronium Bromide 50 MG/5 ML VIAL ONE
--- OUTSIDE RECORDS SUMMARY | 2017-03-02 02:56 | XMS | Clinical Summary ---
:1950 [address] [facility] Address [address] [place] [address] Phone Care Team Providers Name Role Phone [...]
[2017-03-02] MEDS ORDERED: Nitroglycerin 0.4 MG TAB (25 Tab Bottle) ONE ×2 (03:06→03:11)
[2017-03-02] MEDS ORDERED: Nitroglycerin 2% Ointment 1 INCH/1 GM Packet ONE ×2 (03:06→03:11)
[2017-03-02] MEDS ORDERED: Furosemide 40 MG/4 ML VIAL ONE (03:11)
[2017-03-02 03:28] LABS: Oxyhemoglobin 97.1 % (94.0-97.0); Sodium 143 mmol/L (135-148)
[2017-03-02 03:29] LABS: Mode BIPAP; Modified Allen's Test POSITIVE; Pressure Support 12 cmH2O
[2017-03-02 03:31] LABS: #Basophils 0.1 thou/uL (0.0-0.2); #Eosinphils 0.2 thou/uL (0.0-0.7); #Lymphocytes 2.1 thou/uL (1.20-3.40); #Monocytes 0.6 thou/uL (0.11-0.59); #Neutrophils 5.4 thou/uL (1.40-6.50); %Basophils 0.7 % (0.0-1.0); %Eosinophils 2.2 % (0.0-10.0); %Monocytes 7.4 % (0.0-10.0); Hematocrit 39.8 % (36.0-47.0); Mean Platelet Volume 9.6 fL (7.4-10.4); Red Blood Cell (RBC) Count 4.17 mill/uL (4.20-5.40); White Blood Cell (WBC) Count 8.3 thou/uL (4.8-10.8)
[2017-03-02] MEDS ORDERED: Fentanyl 20 MCG/ML 250 ML ONE (03:41)
[2017-03-02 03:45] LABS: Lactic Acid - Sepsis 1.1 mmol/L (0.5-2.2)
[2017-03-02 03:49] LABS: ALT (SGPT) 102 U/L (8-55); AST (SGOT) 80 U/L (5-34); Alkaline Phosphatase 147 U/L (40-150); Anion Gap 14 mmol/L (10-20); BUN (Urea Nitrogen) 49 mg/dL (9.8-20.1); Bilirubin, Total 0.8 mg/dL (0.2-1.2); CK (CPK) 45 U/L (29-168); Calc. Creatinine Clearance 0 mL/min (70-130); Calcium 9.1 mg/dL (7.8-10.44); Carbon Dioxide 26 mmol/L (23-31); Chloride 107 mmol/L (98-107); Estimated GFR-MDRD 21; Globulin 3.9 g/dL (2.4-3.5); Protein, Total 7.4 g/dL (6.0-8.3)
[2017-03-02 03:53] LABS: Troponin I 0.063 ng/mL (< 0.028)
[2017-03-02 05:11] LABS: Oxyhemoglobin 97.6 % (94.0-97.0); Sodium 144 mmol/L (135-148)
[2017-03-02 05:23] LABS: Modified Allen's Test POSITIVE; Vent YES
[2017-03-02 05:24] LABS: Mechanical Tidal Volume 400 ml; Mode SIMV; Pressure Support 10 cmH2O
[2017-03-02] MEDS ORDERED: Ondansetron HCl/PF 4 MG/2 ML Vial IVP PRN (05:48)
[2017-03-02] MEDS ORDERED: Dextrose 5% in Water 1,000 ML IV PRN (05:48)
[2017-03-02] MEDS ORDERED: HumaLOG 300 UNITS/3 ML VIAL SC PRN ×2 (05:48)
[2017-03-02] MEDS ORDERED: Dextrose 50% Abboject 50 ML SYRINGE SLOW IVP PRN (05:48)
[2017-03-02] MEDS ORDERED: Ondansetron ODT 4 MG TAB PO PRN (05:48)
[2017-03-02] MEDS ORDERED: cloNIDine 0.1 MG TAB PO PRN (05:48)
[2017-03-02] MEDS ORDERED: hydrALAZINE 20 MG/ML VIAL SLOW IVP PRN (05:48)
[2017-03-02] MEDS ORDERED: Acetaminophen 650 MG Suppository PR PRN (05:48)
[2017-03-02] MEDS ORDERED: DISCONTINUE PREVIOUS NARCOTIC PAIN MEDICATIONS AND BENZODIAZEPINES FS SCH (05:57)
[2017-03-02] MEDS ORDERED: Lorazepam 2 MG/ML VIAL SLOW IVP PRN (05:57)
[2017-03-02] MEDS ORDERED: Fentanyl 20 MCG/ML 250 ML IVPB SCH (05:57)
[2017-03-02] MEDS ORDERED: Morphine 4 MG/ML Carpuject SLOW IVP PRN (06:02)
[2017-03-02 07:06] LABS: ALT (SGPT) 99 U/L (8-55); AST (SGOT) 79 U/L (5-34); Alkaline Phosphatase 133 U/L (40-150); Anion Gap 16 mmol/L (10-20); BUN (Urea Nitrogen) 47 mg/dL (9.8-20.1); Bilirubin, Total 0.7 mg/dL (0.2-1.2); Calc. Creatinine Clearance 0 mL/min (70-130); Calcium 8.7 mg/dL (7.8-10.44); Carbon Dioxide 24 mmol/L (23-31); Chloride 106 mmol/L (98-107); Estimated GFR-MDRD 24; Globulin 3.4 g/dL (2.4-3.5); Protein, Total 6.6 g/dL (6.0-8.3)
[2017-03-02 07:09] LABS: Troponin I 0.087 ng/mL (< 0.028)
--- NOTE | 2017-03-02 07:27 | HP ---
DATE OF ADMISSION: 03/02/2017 PRIMARY CARE PHYSICIAN: Dr. Zane Giles. PRIMARY GOVERNMENT CLERK: Dr. Godoy. CHIEF COMPLAINT: Shortness of breath. HISTORY OF PRESENT ILLNESS: This is a 66-year-old -Chinese female with significant history of nonischemic cardiomyopathy with ejection fraction of 15%, chronic kidney disease stage 4, acute o n chronic hypercapnic respiratory failure with multiple recent admissions and intubation, 01/2017. The patient presents with recurrent shortness of breath, initially given a trial of BiPAP noninvasiv e mechanical ventilation in the emergency room after patient was noted marked respiratory distress. Initial blood gas in the emergency room showed a pH of 7.22 with a pCO2 of 67.5, bicarbonate 27.1 a nd pO2 of 200.3. The patient failed noninvasive mechanical ventilation requiring intubation in the emergency room. The patient was notably admitted on 02/25/2017 through 02/26/2017 for CHF exacerbat ion with known ejection fraction of 15%. Complicating patient's condition is cardiorenal syndrome w ith chronic kidney disease stage 4. The patient apparently had been taking Lasix up to 120 mg daily , and had been compliant with this regimen. Initial chest imaging in the emergency room showed synchronous motor assembler teri changes in bilateral lung garcia with AICD pacemaker device in place. The patient received nitr oglycerin sublingually in addition to IV Lasix 80 mg x1, fentanyl, ketamine, and transdermal nitrogl ycerin. The patient was referred to the hospitalist for admission to the critical care unit. PAST MEDICAL HISTORY: 1. Acute on chronic systolic congestive heart failure with ejection fraction of 15%-20%. 2. Nonischemic cardiomyopathy with ejection fraction 15%-20%. 3. Acute on chronic hypercapnic, hypoxemic respiratory failure. 4. Chronic kidney disease stage 4. 5. Diabetes mellitus type 2. 6. Hypertension. 7. Severe deconditioning. 8. Recent urinary tract infection with Streptococcus species. 9. Chronic obstructive pulmonary disease. 10. Dyslipidemia. 11. Gastroesophageal reflux disease. PAST SURGICAL HISTORY: 1. Status post left eye enucleation. 2. Bilateral tubal ligation. 3. Status post left oophorectomy. 4. Status post bilateral corneal transplant. 5. Status post AICD/pacemaker placement. CURRENT MEDICATIONS: Based on recent discharge, 01/2017. 1. Tylenol 1000 mg p.o. q.6 hours p.r.n. 2. Aspirin 81 mg 1 tab p.o. daily. 3. Lipitor 40 mg 1 tab p.o. daily. 4. Carvedilol 25 mg p.o. b.i.d. 5. Vitamin D3 1000 units p.o. daily. 6. Plavix 75 mg 1 tab p.o. daily. 7. Docusate 100 mg p.o. every other day. 8. Iron sulfate 325 mg 1 tab p.o. daily. 9. Lasix 40 mg p.o. q.a.m. and 80 mg p.o. at bedtime. 10. Isosorbide mononitrate 60 mg one tab p.o. daily. 11. Tradjenta 5 mg p.o. daily. 12. Protonix 40 mg 1 tab p.o. daily. 13. Zoloft 150 mg 1 tab p.o. daily. 14. Sertraline 150 mg p.o. daily. 15. Zyprexa 40 mg p.o. at bedtime. 16. Bupropion 300 mg p.o. daily. 17. Klonopin 0.5 mg p.o. at bedtime. ALLERGIES: No known drug allergies. FAMILY HISTORY: No inheritable diseases per review of the records from recent admission, 02/25/2017 . SOCIAL HISTORY: Patient lives independently. The patient [facility]. No alcohol, tobacco or illicit drug use. REVIEW OF SYSTEMS: Unobtainable as patient is currently intubated and sedated. PHYSICAL EXAMINATION: VITAL SIGNS: Currently, blood pressure 116/77, pulse 110, respiratory rate 22, temperature 97.8 deg kerrie Fahrenheit, O2 saturation 100% on 35% FiO2, SIMV. GENERAL APPEARANCE: This is a 66-year-old -Chinese female, on current mechanical ventilatio n, sedate. HEENT: Right eye with reactive pupil to light and accommodation. Nares patent. ET tube in place a nd secured appropriately. NECK: Supple, no cervical adenopathy, no thyromegaly, no carotid bruits, no JVD appreciated. Cervi lauren spine with full active and passive range of motion. No meningeal signs noted. CHEST: Clear to auscultation bilaterally. CARDIOVASCULAR: S1, S2 with 2-3/6 systolic ejection murmur in the midepigastric region. Left upper chest wall with AICD pacemaker device in place. ABDOMEN: Rounded, soft, nontender, nondistended. Bowel sounds are positive in all 4 quadrants. No hepatosplenomegaly. No rebound or guarding appreciated. No palpable mass. EXTREMITIES: Warm and dry with fair turgor. No clubbing, cyanosis or asymmetric edema appreciated. Pulses are palpable distally at the dorsalis pedis, posterior tibial, and popliteal arteries bilat erally. Capillary refill less than 2 seconds. NEUROLOGIC: Sedate on mechanical ventilation. PERTINENT LABORATORY DATA AND X-RAY FINDINGS: Sodium 143, potassium 4.2, chloride 107, CO2 of 26, a nion gap 14, BUN 49, creatinine 2.72 with estimated GFR 21, glucose 137. Lactic acid level 1.1, lauren cium 9.1, total bilirubin 0.8, AST 80, ALT 102, alkaline phosphatase 147. Total CK of 45. Troponin I 0.063. BNP 5951, previously noted 4352 on 02/25/2017. CBC showed a white blood cell count of 8. 3, hemoglobin 12, hematocrit 40, platelet count 157 with normal differential. ABG dated 03/02/2017 at 3:26 a.m. showed a pH of 7.22, pCO2 of 67.5, pO2 of 200.3, bicarbonate 27.1, O2 saturation 99% on 50% FIO2. Portable chest x-ray dated 03/02/2017 showed chronic changes in bilateral lung garcia wi th hyperinflation. AICD device in the left upper chest wall. EKG dated 03/02/2017 by my interpreta tion shows ventricular paced rhythm with heart rates in the 90s. ASSESSMENT AND PLAN: 1. Acute on chronic hypercapnic respiratory failure. We will continue SIMV with mechanical ventila tion, FIO2 of 35%. Respiratory rate of 14. PEEP of 5. We will consult Pulmonology Service in the a.m. for ongoing ventilation management. Suspect multifactorial presentation given patient's repeti tive admissions in the last month with recurrent respiratory failure. 2. Acute on chronic systolic congestive heart failure with ejection fraction of 15%. Continue Lasi x 40 mg IV q.12 hours. Recent 2D transthoracic echocardiogram on 02/15/2017 showed ejection fractio n of 15%-20% with severe mitral valve regurgitation. 3. Chronic kidney disease stage 4. Current creatinine and estimated GFR at baseline levels. We wi ll continue to monitor clinically and avoid nephrotoxic agents. We will follow trend in the context of ongoing diuretic therapy. 4. Transaminitis. Suspect secondarily to congestive heart failure with passive congestion. Repeat LFTs and monitor clinically. 5. Diabetes mellitus type 2. Insulin sliding scale for reflexive coverage. 6. Severe deconditioning with multiple admissions. We will consult Palliative Care service for maggie luation. The patient may be deemed an appropriate hospice candidate. 7. Prophylaxis. Sequential compression devices while in bed. Pepcid 20 mg IV q.12 hours. 8. Code status is full. Surrogate medical decision maker is patient's son.
[2017-03-02 07:29] LABS: Oxyhemoglobin 96.7 % (94.0-97.0); Sodium 143 mmol/L (135-148)
[2017-03-02 07:31] LABS: Mechanical Tidal Volume 400 ml; Mode SIMV; PIP 19 cmH2O; Pressure Support 10 cmH2O; Spontaneous Rate 0 min; Vent YES
[2017-03-02 07:41] LABS: Hematocrit 36.9 % (36.0-47.0); Mean Platelet Volume 10.1 fL (7.4-10.4); Red Blood Cell (RBC) Count 3.91 mill/uL (4.20-5.40); White Blood Cell (WBC) Count 7.9 thou/uL (4.8-10.8)
[2017-03-02 07:52] LABS: Burr Cells SLIGHT = 2-5 cells (100X) (0-1/hpf); Elliptocytes SLIGHT = 2-5 cells (100X) (0-1/hpf); Neutrophil 77 % (42-75); Nucleated RBC 1 % (0)
[2017-03-02] MEDS: Propofol 1,000 MG/100 ML VIAL IV PRN ×2 (07:55→18:53)
[2017-03-02] MEDS: Furosemide 40 MG/4 ML VIAL SLOW IVP SCH ×2 (10:32→14:55)
[2017-03-02] MEDS: Famotidine/PF 20 mg/2ml Vial SLOW IVP SCH (10:35)
--- NOTE | 2017-03-02 10:42 | RAD ---
CHEST ONE VIEW HISTORY: Dyspnea. COMPARISON: 02/25/2017. FINDINGS: Cardiac silhouette is magnified and upper limits of normal in size. Mediastinum is midline with aor tic calcification and multi-lead left subclavian cardiac electronic device. Pulmonary vasculature i s unremarkable. No lobar consolidation or pneumothorax are apparent. IMPRESSION: Chronic type findings are stable. No active cardiopulmonary abnormalities are demonstrated. POS: [facility]
--- NOTE | 2017-03-02 10:48 | RAD ---
CHEST ONE VIEW: 03/02/2017 at 0309 hours HISTORY: Dyspnea. COMPARISON: Earlier exam on the same date. FINDINGS: Cardiac silhouette is magnified by projection. Lungs remain hyperinflated. Pulmonary vasculature i s unremarkable. Mediastinum is midline. The tip of an endotracheal catheter overlies the thoracic inlet. Nasogastric tube descends to the stomach. IMPRESSION: Endotracheal catheter and nasogastric tube are in good radiographic position. POS: [facility]
[2017-03-02 12:04] LABS: Troponin I 0.076 ng/mL (< 0.028)
--- NOTE | 2017-03-02 12:36 | CON ---
DATE OF CONSULTATION: 03/02/2017 CONSULTING PHYSICIAN: Dr. Hernandez from the Hospitalist group. REASON FOR CONSULTATION: Acute respiratory failure. HISTORY OF PRESENT ILLNESS: This is a 66-year-old female who has a nonischemic cardiomyopathy with EF of 15%. She came to the ER last night with severe shortness of breath. She failed noninvasive v entilation and was subsequently intubated by the emergency room physician. She is currently on [facility] anical ventilation in the CCU. PAST MEDICAL HISTORY: 1. Congestive heart failure with cardiomyopathy and EF of 15%-20%. 2. History of acute on chronic hypercapnic and hypoxic respiratory failure. 3. Chronic kidney disease stage 4. 4. Diabetes mellitus type 2. 5. Hypertension. 6. Urinary tract infection. 7. Chronic obstructive pulmonary disease. 8. Hyperlipidemia. 9. Gastroesophageal reflux. PAST SURGICAL HISTORY: 1. She has had left eye enucleation. 2. Bilateral tubal ligation. 3. Left oophorectomy. 4. Bilateral corneal transplant. 5. AICD and pacemaker placement. MEDICATIONS PRIOR TO ADMISSION: Klonopin, Tylenol, aspirin, Lipitor, bupropion, Zyprexa, Zoloft, Pr otonix, Tradjenta, isosorbide, Lasix, iron sulfate, docusate, Plavix, vitamin D3, carvedilol. ALLERGIES: None. FAMILY MEDICAL HISTORY: Unremarkable. SOCIAL HISTORY: Does not smoke, does not consume alcohol. REVIEW OF SYSTEMS: Unobtainable. The patient is on mechanical ventilation. PHYSICAL EXAMINATION: VITAL SIGNS: Temperature 98.5, pulse 92, blood pressure 156/88. HEENT: Unremarkable. NECK: No JVD. LUNGS: Coarse breath sounds bilaterally. CARDIAC: S1 and S2 regular with a 2/6 systolic at the left sternal border. ABDOMEN: Soft, nontender. EXTREMITIES: Without clubbing, cyanosis, or edema. LABORATORY DATA: pH 7.40, pCO2 40, pO2 125 that is on SIMV rate 14, tidal volume 400, PEEP 5, press ure support 10, FiO2 35%. Sodium 143, potassium 3.4, chloride 106, CO2 24, BUN 47, creatinine 2.4, glucose 106. Troponin 0.08. BNP 5915. White blood cell count 7.9, hemoglobin 11.4, hematocrit 36. 9, platelet count 125. X-RAY FINDINGS: Chest x-ray at the time of admission showed hyperinflation. I do not see much in t he way of congestive changes. ASSESSMENT: 1. Acute respiratory failure requiring mechanical ventilation. 2. History of congestive heart failure with cardiomyopathy. 3. Possible underlying chronic obstructive pulmonary disease. PLAN: 1. Continue mechanical ventilation. 2. Diurese. 3. Consider adding dobutamine. 4. Leave on mechanical ventilation for today.
[2017-03-02] MEDS: Dextrose 5 %-0.45 % NaCl 1,000 ML IV SCH (20:17)
[2017-03-02] MEDS: Isosorbide Dinitrate 20 MG TAB PER TUBE SCH (20:52)
[2017-03-02] MEDS: hydrALAZINE 10 MG TAB PER TUBE SCH (20:52)
[2017-03-02] MEDS: Atorvastatin Calcium 40 MG TAB PER TUBE SCH (20:52)
[2017-03-03 04:50] LABS: Hematocrit 34.6 % (36.0-47.0); Mean Platelet Volume 10.4 fL (7.4-10.4); Metamyelocyte 1 % (0-0); Neutrophil 49 % (42-75); Red Blood Cell (RBC) Count 3.72 mill/uL (4.20-5.40); White Blood Cell (WBC) Count 7.5 thou/uL (4.8-10.8)
[2017-03-03 05:00] LABS: ALT (SGPT) 126 U/L (8-55); AST (SGOT) 123 U/L (5-34); Alkaline Phosphatase 112 U/L (40-150); Anion Gap 16 mmol/L (10-20); BUN (Urea Nitrogen) 48 mg/dL (9.8-20.1); Bilirubin, Total 0.6 mg/dL (0.2-1.2); Calc. Creatinine Clearance 16 mL/min (70-130); Calcium 8.5 mg/dL (7.8-10.44); Carbon Dioxide 23 mmol/L (23-31); Chloride 109 mmol/L (98-107); Estimated GFR-MDRD 19; Globulin 3.2 g/dL (2.4-3.5); Magnesium 2.1 mg/dL (1.6-2.6); Phosphorus 3.5 mg/dL (2.3-4.7)
[2017-03-03] MEDS: Propofol 1,000 MG/100 ML VIAL IV PRN (05:52)
[2017-03-03] MEDS: Furosemide 40 MG/4 ML VIAL SLOW IVP SCH (05:56)
[2017-03-03 07:02] LABS: Oxyhemoglobin 96.5 % (94.0-97.0); Sodium 145 mmol/L (135-148)
[2017-03-03 07:07] LABS: Mechanical Tidal Volume 400 ml; Mode PSIMV; Modified Allen's Test POSITIVE; Pressure Support 10 cmH2O; Vent YES
--- NOTE | 2017-03-03 07:14 | CON ---
DATE OF CONSULTATION: 03/02/2017 HISTORY OF PRESENT ILLNESS: The patient is an unfortunate woman with a severe nonischemic cardiomyopathy, who presents with respiratory failure. The patient has a long history of congestive heart failure. The patient has a known very low ejection fraction. The patient underwent a cardiac catheterization in 2012, and was found to have a severe decrease in left ventricular systolic function. She subsequently had placement of an automatic implantable cardiac defibrillator. She also has undergone biventricular pacing. The patient has chronic renal insufficiency. She has been on multiple times with increasing dyspnea. The patient presented once again with shortness of breath and had to be intubated. The patient is alert, but intubated. PAST MEDICAL HISTORY: 1. Cardiomyopathy. 2. CVA. 3. Diabetes mellitus. 4. Hypertension. PAST SURGICAL HISTORY: Oophorectomy. MEDICATIONS ON ADMISSION: Plavix 75 daily, Coreg 25 b.i.d., aspirin 81 daily, Lipitor 40 at bedtime, Protonix 40 daily, sertraline 150 daily, Lasix 40 twice a day, Imdur half a tablet daily, iron sulfate 325 daily, and Klonopin 0.5 at bedtime. ALLERGIES: No known drug allergies. PHYSICAL EXAMINATION: GENERAL: Intubated woman. VITAL SIGNS: Blood pressure 121/70. NECK: Full. LUNGS: Coarse breath sounds bilateral. HEART: Regular rate and rhythm, normal S1, S2 with a displaced apical impulse and 2/6 holosystolic murmur. ABDOMEN: Nondistended. EXTREMITIES: Showed trace edema. LABORATORY: Sodium 143, potassium 3.4, chloride 106, bicarbonate 24, BUN 47, creatinine 2.4, AST was 99, troponin 0.076. White blood cell count 7.9, hemoglobin 11.4, hematocrit 36.4, platelets were 125. Her EKG reveals electronic ventricular pacemaker. Her chest x-ray revealed cardiomegaly with an AICD, no significant pulmonary congestion. IMPRESSION: 1. Respiratory failure. 2. Severe nonischemic cardiomyopathy. 3. Severe mitral regurgitation. 4. Diabetes mellitus. 5. Hypertension. 6. Chronic renal insufficiency. 7. History of automatic implantable cardioverter-defibrillator placement. PLAN: This patient presents with respiratory failure. From a cardiac standpoint, she has a severe cardiomyopathy. Would recommend having Bidil for it's apotential survival benefit in -Americans who have CHF. We will restart low dose Coreg. We will follow this patient with you through her hospitalization. Critical care time is 30 minutes. MTDD
[2017-03-03] MEDS ORDERED: Potassium Chloride 40 MEQ in Premix Bag 1 BAG IVPB SCH (08:00)
--- NOTE | 2017-03-03 08:07 | PRG ---
DATE OF SERVICE: 03/03/2017 A 35 minutes critical care time. SUBJECTIVE: Ms. Gabriel wakes up, follows commands without difficulty. She says she wants the breat issa tube out. PHYSICAL EXAMINATION: VITAL SIGNS: Her temperature is 98.8, pulse 95, blood pressure 134/71. A 24-hour intake 843, outpu t 990. HEENT: Unremarkable. NECK: Without adenopathy or JVD. LUNGS: Distant, but clear breath sounds. CARDIOVASCULAR: S1, S2 regular. ABDOMEN: Soft. EXTREMITIES: No edema. LABORATORY DATA: Sodium 145, potassium 3.2, chloride 109, CO2 23, BUN 48, creatinine 2.9, glucose 9 5, AST 123, ALT 126, albumin 2.8, pH 7.48, pCO2 of 35, pO2 of 108 on SIMV rate 14, tidal volume 400, PEEP 5, pressure support 10, FiO2 35%. White blood cell count 7.5, hematocrit 34.6, platelet count 117. ASSESSMENT: 1. Acute respiratory failure requiring mechanical ventilation. 2. I think the patient is likely clinically dry at this time. 3. Cardiomyopathy. 4. Underlying chronic obstructive pulmonary disease. PLAN: 1. Extubation and observe. 2. Hold diuretics for the time being. 3. Replace potassium. 4. Continue nebulization treatments. 5. Consider adding steroids.
[2017-03-03] MEDS: Isosorbide Dinitrate 20 MG TAB PER TUBE SCH ×3 (09:26→22:25)
[2017-03-03] MEDS: hydrALAZINE 10 MG TAB PER TUBE SCH ×3 (09:26→22:23)
[2017-03-03] MEDS: Famotidine/PF 20 mg/2ml Vial SLOW IVP SCH (09:26)
[2017-03-03] MEDS: Clopidogrel Bisulfate 75 MG TAB PER TUBE SCH (09:27)
[2017-03-03] MEDS: Carvedilol 3.125 MG TAB PO SCH ×2 (09:27→21:20)
[2017-03-03] MEDS ORDERED: DC Sedation Protocol FS ONE (11:52)
--- NOTE | 2017-03-03 11:55 | PDOC.PN ---
- Subjective Encounter Start Date: 03/03/17 Encounter Start Time: 11:54 Patient seen and examined. No new complaints. No overnight events. Extubated. - Objective Resuscitation Status: Resuscitation Status FULL:Full Resuscitation MAR Reviewed: Yes Vital Signs & Weight: Vital Signs (12 hours) Temp Pulse Resp BP Pulse Ox 03/03/17 11:16 96 20 99 03/03/17 09:26 97 141/77 H 03/03/17 08:00 98.5 F 97 20 99 03/03/17 07:55 99 18 100 03/03/17 06:32 92 128/69 03/03/17 06:31 92 14 100 03/03/17 06:00 14 03/03/17 04:00 98.8 F 14 03/03/17 02:34 93 03/03/17 02:33 94 22 H 100 03/03/17 02:00 21 H Weight Admit Weight 119 lb 0.784 oz Weight 119 lb 14.903 oz Most Recent Monitor Data Heart Rate from ECG 98 NIBP 129/88 NIBP BP-Mean 118 Respiration from ECG 27 SpO2 99 I&O: 03/02/17 03/03/17 03/04/17 07:59 06:59 06:59 Intake Total 491 Output Total 315 Balance 176 Result Diagrams: 03/03/17 04:25 03/03/17 04:25 Additional Labs: Accuchecks 03/02/17 18:17 POC Glucose 69 L EKG Reviewed by me: Yes (Tele SR) Phys Exam - Physical Examination Constitutional: NAD Respiratory: no wheezing, no rales, no rhonchi Dec AE at bases Cardiovascular: RRR, no rub no heaves/pulsations Gastrointestinal: soft, non-tender, positive bowel sounds Musculoskeletal: no edema Neurological: non-focal, normal sensation, moves all 4 limbs Psychiatric: normal affect, A&O x 3 Dx/Plan (1) Acute respiratory failure with hypoxia and hypercapnia Code(s): J96.01 - ACUTE RESPIRATORY FAILURE WITH HYPOXIA; J96.02 - ACUTE RESPIRATORY FAILURE WITH HYPERCAPNIA Status: Acute (2) Acute on chronic systolic CHF (congestive heart failure) Code(s): I50.23 - ACUTE ON CHRONIC SYSTOLIC (CONGESTIVE) HEART FAILURE Status : Acute (3) DM2 (diabetes mellitus, type 2) Status: Chronic Qualifiers: Diabetes mellitus complication status: with kidney complications Diabetes mellitus complication detail: with chronic kidney disease Chronic kidney disease stage: stage 4 (severe) (4) HTN (hypertension) Code(s): I10 - ESSENTIAL (PRIMARY) HYPERTENSION Status: Chronic Qualifiers: Hypertension type: essential hypertension Qualified Code(s): I10 - Essential (primary) hypertension (5) Elevated troponin Code(s): R74.8 - ABNORMAL LEVELS OF OTHER SERUM ENZYMES Status: Acute (6) Hypokalemia Code(s): E87.6 - HYPOKALEMIA Status: Acute (7) Other issues per previous notes Comment: GERD, Dyslipidemia, Abn LFTs due to passive hepatic congestion - Plan cont current plan of care, hawk catheter, DVT proph w/SCDs * Diuretics on hold * Extubated * Cont to monitor * AM labs * Cardiology/Pulm following * Cont current meds as below * Replace Potassium Review of Systems - Review of Systems Respiratory: negative: Cough, Dry, Shortness of Breath, Hemoptysis, SOB with Excertion, Pleuritic Pain, Sputum, Wheezing Cardiovascular: negative: Chest Pain, Palpitations, Orthopnea, Paroxysmal Noc. Dyspnea, Edema, Light Headedness, Other - Medications/Allergies Allergies/Adverse Reactions: Allergies Allergy/AdvReac Type Severity Reaction Status Date / Time No Known Allergies Allergy Verified 02/25/17 22:53 Medications: Current Medications Acetaminophen (Tylenol) 650 mg [place] Q4H PRN PRN Reason: Headache/Fever or Mild Pain Albuterol/Ipratropium (Duoneb) 3 ml NEB [id number] [facility] Last Admin: 03/03/17 11:16 Dose: 3 ml Aspirin (Aspirin Chewable) 81 mg PER TUBE DAILY [facility] Last Admin: 03/03/17 09:27 Dose: 81 mg Atorvastatin Calcium (Lipitor) 40 mg PER TUBE HS [facility] Last Admin: 03/02/17 20:52 Dose: 40 mg Carvedilol (Coreg) 3.125 mg PO BID [facility] Last Admin: 03/03/17 09:27 Dose: 3.125 mg Clonidine (Catapres) 0.1 mg PO Q4H PRN PRN Reason: Systolic BP > 180 Clopidogrel Bisulfate (Plavix) 75 mg PER TUBE DAILY [facility] Last Admin: 03/03/17 09:27 Dose: 75 mg Dextrose/Water (Dextrose 50%) 25 gm SLOW IVP PRN PRN PRN Reason: Hypoglycemia Famotidine (Pepcid) 20 mg PO BID [facility] Glucagon (Glucagon) 1 mg IM PRN PRN PRN Reason: Hypoglycemia Hydralazine HCl (Apresoline) 10 mg SLOW IVP Q4H PRN PRN Reason: Systolic BP > 180 Hydralazine HCl (Apresoline) 10 mg PER TUBE TID [facility] Last Admin: 03/03/17 09:26 Dose: 10 mg Dextrose/Water (D5w) 1,000 mls @ 0 mls/hr IV .Q0M PRN; As Directed PRN Reason: Hypoglycemia Fentanyl (Fentanyl Cadd) 250 mls @ 0 mls/hr IVPB INF CARLOS; Titrate PRN Reason: Protocol Stop: 04/01/17 05:57 Fentanyl Citrate (Fentanyl Bolus) 250 mls @ 0 mls/hr IVPB PRN PRN; As Directed PRN Reason: VENTILATION SEDATION PROTOCOL Stop: 04/01/17 05:57 Dextrose/Sodium Chloride (D5 1/2 Ns) 1,000 mls @ 50 mls/hr IV .Q20H [facility] Last Admin: 03/02/17 20:17 Dose: 1,000 mls Potassium Chloride 40 meq/ (Device) 100 mls @ 25 mls/hr IVPB ONE [facility] Stop: 03/03/17 12:00 Insulin Human Lispro (Humalog) 0 units SC .MILD SLIDING SCALE PRN PRN Reason: Mild Correctional Scale Insulin Human Lispro (Humalog) 0 units SC .BEDTIME SLIDING SC PRN PRN Reason: Bedtime Correctional Scale Isosorbide Dinitrate (Isordil) 10 mg PER TUBE TID [facility] Last Admin: 03/03/17 09:26 Dose: 10 mg Lorazepam (Ativan) 2 mg SLOW IVP Q2H PRN PRN Reason: Anxiety to achieve Lepe 2-3 Stop: 04/01/17 05:57 Last Admin: 03/02/17 10:35 Dose: 2 mg Miscellaneous Medication (Dc Sedation Protocol) 1 each FS ONE ONE Stop: 03/03/17 11:53 Morphine Sulfate (Morphine) 2 mg SLOW IVP Q2H PRN PRN Reason: TO ACHIEVE ELDON SCORE 2-3 Discontinue Previous Narcotic Pain Medications And Benzodiazepines 1 each FS .ONE [facility] Stop: 04/01/17 05:57 Ondansetron HCl (Zofran Odt) 4 mg PO Q6H PRN PRN Reason: Nausea/Vomiting Ondansetron HCl (Zofran) 4 mg IVP Q6H PRN PRN Reason: Nausea/Vomiting Propofol (Diprivan) 1,000 mg IV INF PRN; Protocol PRN Reason: TO ACHIEVE LEPE SCORE 2-3 Stop: 04/01/17 05:57 Last Admin: 03/03/17 05:52 Dose: 1,000 mg Sodium Chloride (Flush - Normal Saline) 10 ml IVF PRN PRN PRN Reason: Saline Flush
[2017-03-03] MEDS: Furosemide 40 MG TAB PO SCH (13:46)
[2017-03-03] MEDS: Dextrose 5 %-0.45 % NaCl 1,000 ML IV SCH (13:48)
[2017-03-03] MEDS ORDERED: Furosemide 20 MG TAB PO SCH (14:00)
[2017-03-03] MEDS ORDERED: Famotidine 20 MG TAB PO SCH (21:00)
[2017-03-03] MEDS: Atorvastatin Calcium 40 MG TAB PER TUBE SCH (21:20)
--- NOTE | 2017-03-03 23:59 | RAD ---
CHEST ONE VIEW: History: Diaphragmatic cardiomyopathy. Comparison: 03-02-17 FINDINGS: Patient has been extubated, enteric tube has been removed. Cardiac device is similar although it is difficult to evaluate due numerous wires projecting over the chest. Small left effusion. No pneumoth orax. IMPRESSION: Interval extubation with removal of enteric tube. No complication. POS: [facility]
[2017-03-04 04:45] LABS: Hematocrit 34.7 % (36.0-47.0); Mean Platelet Volume 10.7 fL (7.4-10.4); Red Blood Cell (RBC) Count 3.65 mill/uL (4.20-5.40); White Blood Cell (WBC) Count 6.9 thou/uL (4.8-10.8)
[2017-03-04 04:50] LABS: Hypochromia SLIGHT = 6-15 cells (100X) (0-5/hpf); Neutrophil 57 % (42-75); Target Cells SLIGHT = 2-5 cells (100X) (0-1/hpf)
[2017-03-04 04:52] LABS: ALT (SGPT) 96 U/L (8-55); AST (SGOT) 65 U/L (5-34); Alkaline Phosphatase 112 U/L (40-150); Anion Gap 13 mmol/L (10-20); BUN (Urea Nitrogen) 43 mg/dL (9.8-20.1); Bilirubin, Total 0.6 mg/dL (0.2-1.2); Calc. Creatinine Clearance 17 mL/min (70-130); Calcium 8.3 mg/dL (7.8-10.44); Carbon Dioxide 24 mmol/L (23-31); Chloride 105 mmol/L (98-107); Estimated GFR-MDRD 20; Globulin 3.1 g/dL (2.4-3.5); Phosphorus 3.7 mg/dL (2.3-4.7)
[2017-03-04] MEDS: Carvedilol 3.125 MG TAB PO SCH ×2 (07:09→20:53)
[2017-03-04] MEDS: Clopidogrel Bisulfate 75 MG TAB PER TUBE SCH (07:11)
[2017-03-04] MEDS: Isosorbide Dinitrate 20 MG TAB PER TUBE SCH ×3 (07:11→20:53)
[2017-03-04] MEDS: hydrALAZINE 10 MG TAB PER TUBE SCH ×3 (07:11→20:52)
[2017-03-04] MEDS: Furosemide 40 MG TAB PO SCH ×2 (07:11→14:17)
--- NOTE | 2017-03-04 07:35 | PRG ---
DATE OF SERVICE: 03/04/2017 SUBJECTIVE: The patient is more short of breath than she was post-extubation yesterday. PHYSICAL EXAMINATION: VITAL SIGNS: Temperature is 98.2, pulse 109, blood pressure 158/89. A 24-hour intake 2155, output 1089. HEENT: Unremarkable. NECK: No JVD. LUNGS: Clear, but distant breath sounds. CARDIOVASCULAR: S1, S2, slightly tachycardic. ABDOMEN: Soft, nontender. EXTREMITIES: No edema. LABORATORY DATA: White blood cell count 6.9, hematocrit 34.7, platelet count 117. Sodium 139, pota ssium 3.3, chloride 105, CO2 24, BUN 43, creatinine 2.8, glucose 109. ASSESSMENT: Status post acute respiratory failure, likely multifactorial in etiology. She has a no nischemic cardiomyopathy by history. She also appeared to have some component of chronic obstructiv e pulmonary disease, severe mitral regurgitation, and borderline control hypertension. PLAN: 1. The patient is being given her cardiac medication this morning to see if we can help her breathi ng rate. I will change her nebulization treatments to p.r.n. as I think that the albuterol may be c ausing her to become excessively tachycardic. 2. She is doing well. Later this afternoon, she can probably be transferred to the floor. I will notify Dr. Cano about the patient's hospitalization as he has seen her in the past.
[2017-03-04] MEDS: Dextrose 5 %-0.45 % NaCl 1,000 ML IV SCH (13:10)
[2017-03-04] MEDS: Senokot S 8.6-50 MG TAB PO SCH (20:53)
[2017-03-04] MEDS: Acetaminophen 325 MG TAB PO PRN (20:53)
[2017-03-04] MEDS: Famotidine 20 MG TAB PO SCH (20:53)
[2017-03-04] MEDS: Atorvastatin Calcium 40 MG TAB PER TUBE SCH (20:53)
--- NOTE | 2017-03-04 21:18 | PDOC.PN ---
- Subjective Encounter Start Date: 03/04/17 Encounter Start Time: 12:00 Patient seen and examined. No new complaints. No overnight events. No CP/SOB - Objective Resuscitation Status: Resuscitation Status FULL:Full Resuscitation MAR Reviewed: Yes Vital Signs & Weight: Vital Signs (12 hours) Temp Pulse Pulse Pulse BP BP BP 03/04/17 20:52 95 147/67 H 03/04/17 20:00 98.4 F 03/04/17 16:00 98.2 F 03/04/17 14:36 94 94 113/62 113/60 03/04/17 14:17 90 132/59 L Pulse Ox Pulse Ox 03/04/17 20:52 03/04/17 20:00 03/04/17 16:00 03/04/17 14:36 100 99 03/04/17 14:17 Weight Admit Weight 3.464 oz Weight 115 lb 1.6 oz Most Recent Monitor Data Heart Rate from ECG 95 NIBP 147/67 NIBP BP-Mean 91 Respiration from ECG 23 SpO2 100 I&O: 03/03/17 03/04/17 03/05/17 06:59 06:59 06:59 Intake Total 2155 600 Output Total 1089 710 Balance 1066 -110 Result Diagrams: 03/05/17 03:22 03/05/17 03:22 Additional Labs: Accuchecks 03/04/17 03/04/17 03/04/17 16:14 11:36 06:23 POC Glucose 112 H 101 121 H 03/03/17 03/03/17 22:35 21:24 POC Glucose 112 H 103 EKG Reviewed by me: Yes (Tele SR) Phys Exam - Physical Examination Constitutional: NAD Respiratory: no wheezing, no rhonchi Cardiovascular: RRR, no rub Gastrointestinal: soft, non-tender, positive bowel sounds Musculoskeletal: no edema Neurological: moves all 4 limbs Dx/Plan (1) Acute respiratory failure with hypoxia and hypercapnia Code(s): J96.01 - ACUTE RESPIRATORY FAILURE WITH HYPOXIA; J96.02 - ACUTE RESPIRATORY FAILURE WITH HYPERCAPNIA Status: Acute Comment: improved (2) Acute on chronic systolic CHF (congestive heart failure) Code(s): I50.23 - ACUTE ON CHRONIC SYSTOLIC (CONGESTIVE) HEART FAILURE Status : Acute (3) DM2 (diabetes mellitus, type 2) Status: Chronic Qualifiers: Diabetes mellitus complication status: with kidney complications Diabetes mellitus complication detail: with chronic kidney disease Chronic kidney disease stage: stage 4 (severe) (4) HTN (hypertension) Code(s): I10 - ESSENTIAL (PRIMARY) HYPERTENSION Status: Chronic Qualifiers: Hypertension type: essential hypertension Qualified Code(s): I10 - Essential (primary) hypertension (5) Elevated troponin Code(s): R74.8 - ABNORMAL LEVELS OF OTHER SERUM ENZYMES Status: Acute Comment: prob due to CHF (6) Hypokalemia Code(s): E87.6 - HYPOKALEMIA Status: Acute (7) Other issues per previous notes Comment: GERD, Dyslipidemia, Abn LFTs due to passive hepatic congestion - Plan cont current plan of care, DVT proph w/SCDs * Cont PO diuretics * Replace Potassium * Transfer to tele later today * AM labs * Cont cardiac rehab * JATIN hawk in AM * Add stool softener Review of Systems - Review of Systems Respiratory: negative: Cough, Dry, Shortness of Breath, Hemoptysis, SOB with Excertion, Pleuritic Pain, Sputum, Wheezing Gastrointestinal: negative: Nausea, Vomiting, Abdominal Pain, Diarrhea, Constipation, Melena, Hematochezia, Other - Medications/Allergies Allergies/Adverse Reactions: Allergies Allergy/AdvReac Type Severity Reaction Status Date / Time No Known Allergies Allergy Verified 02/25/17 22:53 Medications: Current Medications Acetaminophen (Tylenol) 650 mg [place] Q4H PRN PRN Reason: Headache/Fever or Mild Pain Acetaminophen (Tylenol) 650 mg PO Q4H PRN PRN Reason: Pain Last Admin: 03/04/17 20:53 Dose: 650 mg Albuterol/Ipratropium (Duoneb) 3 ml NEB [id number] PRN PRN Reason: SOB &/or Wheezing Aspirin (Aspirin Chewable) 81 mg PER TUBE DAILY [facility] Last Admin: 03/04/17 07:09 Dose: 81 mg Atorvastatin Calcium (Lipitor) 40 mg PER TUBE HS [facility] Last Admin: 03/04/17 20:53 Dose: 40 mg Carvedilol (Coreg) 3.125 mg PO BID [facility] Last Admin: 03/04/17 20:53 Dose: 3.125 mg Clonidine (Catapres) 0.1 mg PO Q4H PRN PRN Reason: Systolic BP > 180 Clopidogrel Bisulfate (Plavix) 75 mg PER TUBE DAILY [facility] Last Admin: 11/06/17 07:11 Dose: 75 mg Dextrose/Water (Dextrose 50%) 25 gm SLOW IVP PRN PRN PRN Reason: Hypoglycemia Famotidine (Pepcid) 20 mg PO 2100 [facility] Last Admin: 03/04/17 20:53 Dose: 20 mg Furosemide (Lasix) 40 mg PO 0900,1400 [facility] Last Admin: 03/04/17 14:17 Dose: 40 mg Glucagon (Glucagon) 1 mg IM PRN PRN PRN Reason: Hypoglycemia Hydralazine HCl (Apresoline) 10 mg SLOW IVP Q4H PRN PRN Reason: Systolic BP > 180 Hydralazine HCl (Apresoline) 20 mg PER TUBE TID [facility] Last Admin: 03/04/17 20:52 Dose: 20 mg Dextrose/Water (D5w) 1,000 mls @ 0 mls/hr IV .Q0M PRN; As Directed PRN Reason: Hypoglycemia Dextrose/Sodium Chloride (D5 1/2 Ns) 1,000 mls @ 50 mls/hr IV .Q20H [facility] Last Admin: 03/04/17 13:10 Dose: 1,000 mls Insulin Human Lispro (Humalog) 0 units SC .MILD SLIDING SCALE PRN PRN Reason: Mild Correctional Scale Insulin Human Lispro (Humalog) 0 units SC .BEDTIME SLIDING SC PRN PRN Reason: Bedtime Correctional Scale Isosorbide Dinitrate (Isordil) 20 mg PER TUBE TID [facility] Last Admin: 03/04/17 20:53 Dose: 20 mg Morphine Sulfate (Morphine) 2 mg SLOW IVP Q2H PRN PRN Reason: TO ACHIEVE ELDON SCORE 2-3 Ondansetron HCl (Zofran Odt) 4 mg PO Q6H PRN PRN Reason: Nausea/Vomiting Ondansetron HCl (Zofran) 4 mg IVP Q6H PRN PRN Reason: Nausea/Vomiting Polyethylene Glycol (Miralax) 17 gm PO DAILY [facility] Senna/Docusate Sodium (Senokot S) 1 tab PO BID [facility] Last Admin: 03/04/17 20:53 Dose: 1 tab Sodium Chloride (Flush - Normal Saline) 10 ml IVF PRN PRN PRN Reason: Saline Flush
[2017-03-05] MEDS: Acetaminophen 325 MG TAB PO PRN ×3 (02:27→19:37)
[2017-03-05 04:31] LABS: Band 1 % (5-11); Hematocrit 32.8 % (36.0-47.0); Mean Platelet Volume 10.2 fL (7.4-10.4); Neutrophil 50 % (42-75); Red Blood Cell (RBC) Count 3.43 mill/uL (4.20-5.40); White Blood Cell (WBC) Count 5.8 thou/uL (4.8-10.8)
[2017-03-05 04:36] LABS: ALT (SGPT) 75 U/L (8-55); AST (SGOT) 51 U/L (5-34); Alkaline Phosphatase 117 U/L (40-150); Anion Gap 15 mmol/L (10-20); BUN (Urea Nitrogen) 39 mg/dL (9.8-20.1); Bilirubin, Total 0.7 mg/dL (0.2-1.2); Calc. Creatinine Clearance 18 mL/min (70-130); Calcium 8.4 mg/dL (7.8-10.44); Carbon Dioxide 23 mmol/L (23-31); Chloride 105 mmol/L (98-107); Estimated GFR-MDRD 24; Globulin 3.1 g/dL (2.4-3.5); Protein, Total 5.9 g/dL (6.0-8.3)
[2017-03-05] MEDS: Furosemide 40 MG TAB PO SCH ×2 (08:58→13:19)
[2017-03-05] MEDS: Carvedilol 3.125 MG TAB PO SCH ×2 (08:58→20:48)
[2017-03-05] MEDS: hydrALAZINE 25 MG TAB PO SCH ×3 (08:59→20:48)
[2017-03-05] MEDS: Senokot S 8.6-50 MG TAB PO SCH ×2 (08:59→20:48)
[2017-03-05] MEDS: Clopidogrel Bisulfate 75 MG TAB PER TUBE SCH (08:59)
[2017-03-05] MEDS: Isosorbide Dinitrate 20 MG TAB PER TUBE SCH ×3 (09:00→20:47)
[2017-03-05] MEDS: Polyethylene Glycol 3350 17 GM Packet PO SCH (09:00)
[2017-03-05] MEDS: Dextrose 5 %-0.45 % NaCl 1,000 ML IV SCH (09:02)
--- NOTE | 2017-03-05 10:50 | PRG ---
DATE OF SERVICE: 03/05/2017 Ms. Gabriel is sitting up in the chair. She looks better today. She is awake and alert. PHYSICAL EXAMINATION: VITAL SIGNS: Blood pressure most recent recorded at 124/50, pulse 90, it is atrial sensed ventricul ar paced. LUNGS: Clear. CARDIAC: Normal S1 and S2. I do not hear a murmur. ABDOMEN: Soft, nontender. EXTREMITIES: There is no edema. The echocardiogram was reviewed. It looks like the ejection fraction is approximately 15%, markedly dilated left ventricle with moderate to severe mitral regurgitation. ASSESSMENT: 1. Cardiomyopathy, severe. 2. Renal failure stage 4, estimated GFR is 24. 3. Hypokalemia. 4. The defibrillator generator is at elective replacement indicator. PLAN: 1. We will need to change the device. 2. We will increase the carvedilol back up. 3. Hep-Lock IV. 4. Will need a dose potassium.
--- NOTE | 2017-03-05 16:56 | PRG ---
DATE OF SERVICE: 03/05/2017 SERVICE: Pulmonary Medicine. INTERVAL HISTORY: The patient is doing fine from a cardiovascular and respiratory standpoint. She denies any shortness of breath. She has been weaned down to 1 liter nasal cannula. She is tolerati ng p.o. and has no specific complaints otherwise. There were no overnight events. PHYSICAL EXAMINATION: VITAL SIGNS: Afebrile, pulse 95, blood pressure 147/67, respirations 19, saturation 99% on 1 liter nasal cannula. HEENT: Normocephalic, atraumatic. Sclerae are white, conjunctivae pink. Oral and nasal mucosa is moist without lesions. LUNGS: Decreased air entry. Dependent crackles are present. No prolonged expiratory phase or whee zing. HEART: Normal rate, regular. ABDOMEN: Soft, nontender, nondistended, bowel sounds positive. MUSCULOSKELETAL: No cyanosis or clubbing. No pitting in the bilateral lower extremities. NEUROLOGIC: Grossly nonfocal. : No Dailey. LABORATORY DATA: WBC 5.8, hemoglobin 10.2, platelets 117,000. Creatinine 2.48 which is gently down trending. BUN 39, potassium 3.2. Liver function studies are gently down trending. ASSESSMENT: 1. Acute hypoxic respiratory failure. 2. Acute on chronic systolic heart failure. 3. Acute on chronic kidney disease. 4. Hypertension. PLAN: I will interrupt her IV fluids today. She is tolerating p.o. Pulmonary Critical Care will c ontinue to follow for the time being. Hopefully, she will be in a position for discharge from the [facility] in 1-2 days.
--- NOTE | 2017-03-05 20:19 | PDOC.PN ---
- Subjective Encounter Start Date: 03/05/17 Encounter Start Time: 09:30 Patient seen and examined. No new complaints. No overnight events. Sitting on chair. SOB better. - Objective Resuscitation Status: Resuscitation Status DNR:Do Not Resuscitate MAR Reviewed: Yes Vital Signs & Weight: Vital Signs (12 hours) Temp Pulse Pulse Pulse BP BP BP 03/05/17 14:53 95 147/67 H 03/05/17 13:10 92 93 118/61 121/59 L 03/05/17 11:00 97.8 F 03/05/17 08:59 95 147/67 H Weight Admit Weight 119 lb Weight 117 lb 11.629 oz Most Recent Monitor Data Heart Rate from ECG 91 NIBP 122/65 NIBP BP-Mean 71 Respiration from ECG 19 SpO2 99 I&O: 03/04/17 03/05/17 03/06/17 06:59 06:59 06:59 Intake Total 2155 1227 811 Output Total 1089 985 600 Balance 1066 242 211 Result Diagrams: 03/05/17 03:22 03/05/17 03:22 Additional Labs: Accuchecks 03/05/17 03/05/17 03/04/17 11:14 05:14 20:57 POC Glucose 99 119 H 104 EKG Reviewed by me: Yes (Tele paced) Phys Exam - Physical Examination Constitutional: NAD Respiratory: no wheezing, no rales, no rhonchi Cardiovascular: RRR, no rub Gastrointestinal: soft, non-tender, positive bowel sounds Musculoskeletal: no edema Neurological: moves all 4 limbs Dx/Plan (1) Acute respiratory failure with hypoxia and hypercapnia Code(s): J96.01 - ACUTE RESPIRATORY FAILURE WITH HYPOXIA; J96.02 - ACUTE RESPIRATORY FAILURE WITH HYPERCAPNIA Status: Acute Comment: improved (2) Acute on chronic systolic CHF (congestive heart failure) Code(s): I50.23 - ACUTE ON CHRONIC SYSTOLIC (CONGESTIVE) HEART FAILURE Status : Acute (3) DM2 (diabetes mellitus, type 2) Status: Chronic Qualifiers: Diabetes mellitus complication status: with kidney complications Diabetes mellitus complication detail: with chronic kidney disease Chronic kidney disease stage: stage 4 (severe) (4) HTN (hypertension) Code(s): I10 - ESSENTIAL (PRIMARY) HYPERTENSION Status: Chronic Qualifiers: Hypertension type: essential hypertension Qualified Code(s): I10 - Essential (primary) hypertension (5) Elevated troponin Code(s): R74.8 - ABNORMAL LEVELS OF OTHER SERUM ENZYMES Status: Acute Comment: prob due to CHF (6) Hypokalemia Code(s): E87.6 - HYPOKALEMIA Status: Acute (7) Other issues per previous notes Comment: GERD, Dyslipidemia, Abn LFTs due to passive hepatic congestion - Plan cont current plan of care, DVT proph w/SCDs * Cardiology following * Cont PO diuretics * Replace Potassium * Home O2 assessment * Dailey dced * Cont to monitor * DNR - Palliative care confirmed with patient/family Review of Systems - Review of Systems Respiratory: SOB with Excertion. negative: Cough, Dry, Shortness of Breath, Hemoptysis, Pleuritic Pain, Sputum, Wheezing Cardiovascular: negative: Chest Pain, Palpitations, Orthopnea, Paroxysmal Noc. Dyspnea, Edema, Light Headedness, Other Gastrointestinal: negative: Nausea, Vomiting, Abdominal Pain, Diarrhea, Constipation, Melena, Hematochezia, Other - Medications/Allergies Allergies/Adverse Reactions: Allergies Allergy/AdvReac Type Severity Reaction Status Date / Time No Known Allergies Allergy Verified 02/25/17 22:53 Medications: Current Medications Acetaminophen (Tylenol) 650 mg [place] Q4H PRN PRN Reason: Headache/Fever or Mild Pain Acetaminophen (Tylenol) 650 mg PO Q4H PRN PRN Reason: Pain Last Admin: 03/05/17 19:37 Dose: 650 mg Albuterol/Ipratropium (Duoneb) 3 ml NEB [id number] PRN PRN Reason: SOB &/or Wheezing Aspirin (Aspirin Chewable) 81 mg PER TUBE DAILY [facility] Last Admin: 03/05/17 08:59 Dose: 81 mg Atorvastatin Calcium (Lipitor) 40 mg PER TUBE HS [facility] Last Admin: 03/04/17 20:53 Dose: 40 mg Carvedilol (Coreg) 6.25 mg PO BID [facility] Last Admin: 03/05/17 08:58 Dose: 6.25 mg Clonidine (Catapres) 0.1 mg PO Q4H PRN PRN Reason: Systolic BP > 180 Clopidogrel Bisulfate (Plavix) 75 mg PER TUBE DAILY [facility] Last Admin: 03/05/17 08:59 Dose: 75 mg Dextrose/Water (Dextrose 50%) 25 gm SLOW IVP PRN PRN PRN Reason: Hypoglycemia Famotidine (Pepcid) 20 mg PO 2100 [facility] Last Admin: 03/04/17 20:53 Dose: 20 mg Furosemide (Lasix) 40 mg PO 0900,1400 [facility] Last Admin: 03/05/17 13:19 Dose: 40 mg Glucagon (Glucagon) 1 mg IM PRN PRN PRN Reason: Hypoglycemia Hydralazine HCl (Apresoline) 10 mg SLOW IVP Q4H PRN PRN Reason: Systolic BP > 180 Hydralazine HCl (Apresoline) 25 mg PO TID [facility] Last Admin: 03/05/17 14:53 Dose: 25 mg Dextrose/Water (D5w) 1,000 mls @ 0 mls/hr IV .Q0M PRN; As Directed PRN Reason: Hypoglycemia Insulin Human Lispro (Humalog) 0 units SC .MILD SLIDING SCALE PRN PRN Reason: Mild Correctional Scale Insulin Human Lispro (Humalog) 0 units SC .BEDTIME SLIDING SC PRN PRN Reason: Bedtime Correctional Scale Isosorbide Dinitrate (Isordil) 20 mg PER TUBE TID [facility] Last Admin: 03/05/17 14:53 Dose: 20 mg Morphine Sulfate (Morphine) 2 mg SLOW IVP Q2H PRN PRN Reason: TO ACHIEVE ELDON SCORE 2-3 Ondansetron HCl (Zofran Odt) 4 mg PO Q6H PRN PRN Reason: Nausea/Vomiting Ondansetron HCl (Zofran) 4 mg IVP Q6H PRN PRN Reason: Nausea/Vomiting Polyethylene Glycol (Miralax) 17 gm PO DAILY [facility] Last Admin: 03/05/17 09:00 Dose: 17 gm Potassium Chloride (Klor-Con) 20 meq PO BID[facility] Stop: 03/06/17 08:01 Last Admin: 03/05/17 19:34 Dose: 20 meq Senna/Docusate Sodium (Senokot S) 1 tab PO BID [facility] Last Admin: 03/05/17 08:59 Dose: 1 tab Sodium Chloride (Flush - Normal Saline) 10 ml IVF PRN PRN PRN Reason: Saline Flush
[2017-03-05] MEDS: Famotidine 20 MG TAB PO SCH (20:47)
[2017-03-05] MEDS: Atorvastatin Calcium 40 MG TAB PER TUBE SCH (20:48)
[2017-03-06] MEDS ORDERED: clonazePAM 0.5 MG TAB PO PRN (00:42)
[2017-03-06] MEDS: Senokot S 8.6-50 MG TAB PO SCH ×2 (08:51→21:12)
[2017-03-06] MEDS: hydrALAZINE 25 MG TAB PO SCH ×3 (08:51→21:11)
[2017-03-06] MEDS: Clopidogrel Bisulfate 75 MG TAB PER TUBE SCH (08:51)
[2017-03-06] MEDS: Isosorbide Dinitrate 20 MG TAB PER TUBE SCH ×3 (08:51→21:12)
[2017-03-06] MEDS: Polyethylene Glycol 3350 17 GM Packet PO SCH (08:51)
[2017-03-06] MEDS: Carvedilol 3.125 MG TAB PO SCH (08:52)
[2017-03-06] MEDS: Furosemide 40 MG TAB PO SCH ×2 (08:52→15:38)
[2017-03-06] MEDS ORDERED: Potassium Chloride 10 MEQ TAB PO SCH (11:15)
--- NOTE | 2017-03-06 16:46 | PDOC.PN ---
- Subjective Encounter Start Date: 03/06/17 Encounter Start Time: 13:00 Patient seen and examined. No new complaints. No overnight events - Objective Resuscitation Status: Resuscitation Status FULL:Full Resuscitation MAR Reviewed: Yes Vital Signs & Weight: Vital Signs (12 hours) Pulse Pulse Pulse BP BP BP Pulse Ox 03/06/17 15:37 91 116/62 03/06/17 12:29 93 93 127/69 128/70 100 03/06/17 08:51 91 116/62 Pulse Ox 03/06/17 15:37 03/06/17 12:29 100 03/06/17 08:51 Weight Admit Weight 119 lb Weight 131 lb 11.2 oz Most Recent Monitor Data Heart Rate from ECG 91 NIBP 122/65 NIBP BP-Mean 71 Respiration from ECG 19 SpO2 99 I&O: 03/05/17 03/06/17 03/07/17 06:59 06:59 06:59 Intake Total 1227 1411 720 Output Total 985 600 Balance 242 811 720 Result Diagrams: 03/05/17 03:22 03/07/17 05:46 Additional Labs: Accuchecks 03/06/17 03/06/17 03/06/17 15:49 10:46 06:40 POC Glucose 106 94 93 EKG Reviewed by me: Yes (Tele paced) Phys Exam - Physical Examination Constitutional: NAD Respiratory: no wheezing, no rhonchi Cardiovascular: RRR, no rub Gastrointestinal: soft, non-tender, positive bowel sounds Musculoskeletal: no edema Neurological: non-focal, moves all 4 limbs Dx/Plan (1) Acute respiratory failure with hypoxia and hypercapnia Code(s): J96.01 - ACUTE RESPIRATORY FAILURE WITH HYPOXIA; J96.02 - ACUTE RESPIRATORY FAILURE WITH HYPERCAPNIA Status: Acute Comment: improved (2) Acute on chronic systolic CHF (congestive heart failure) Code(s): I50.23 - ACUTE ON CHRONIC SYSTOLIC (CONGESTIVE) HEART FAILURE Status : Acute Comment: improving. No ACEI/ARB due to renal failure (3) DM2 (diabetes mellitus, type 2) Status: Chronic Qualifiers: Diabetes mellitus complication status: with kidney complications Diabetes mellitus complication detail: with chronic kidney disease Chronic kidney disease stage: stage 4 (severe) (4) HTN (hypertension) Code(s): I10 - ESSENTIAL (PRIMARY) HYPERTENSION Status: Chronic Qualifiers: Hypertension type: essential hypertension Qualified Code(s): I10 - Essential (primary) hypertension (5) Elevated troponin Code(s): R74.8 - ABNORMAL LEVELS OF OTHER SERUM ENZYMES Status: Acute Comment: prob due to CHF (6) Hypokalemia Code(s): E87.6 - HYPOKALEMIA Status: Acute (7) Other issues per previous notes Comment: GERD, Dyslipidemia, Abn LFTs due to passive hepatic congestion - Plan cont current plan of care, DVT proph w/SCDs * Cont Cardiac rehab * Coreg dose increased * AM labs * Cont to monitor * Cardiology following * Cont PO diuretics * EP consulted for generator change. * Change code status to No CPR per patient. Review of Systems - Review of Systems Respiratory: negative: Cough, Dry, Shortness of Breath, Hemoptysis, SOB with Excertion, Pleuritic Pain, Sputum, Wheezing Cardiovascular: negative: Chest Pain, Palpitations, Orthopnea, Paroxysmal Noc. Dyspnea, Edema, Light Headedness, Other Gastrointestinal: negative: Nausea, Vomiting, Abdominal Pain, Diarrhea, Constipation, Melena, Hematochezia, Other - Medications/Allergies Allergies/Adverse Reactions: Allergies Allergy/AdvReac Type Severity Reaction Status Date / Time No Known Allergies Allergy Verified 02/25/17 22:53 Medications: Current Medications Acetaminophen (Tylenol) 650 mg DE Q4H PRN PRN Reason: Headache/Fever or Mild Pain Acetaminophen (Tylenol) 650 mg PO Q4H PRN PRN Reason: Pain Last Admin: 03/05/17 19:37 Dose: 650 mg Albuterol/Ipratropium (Duoneb) 3 ml NEB [id number] PRN PRN Reason: SOB &/or Wheezing Aspirin (Aspirin Chewable) 81 mg PER TUBE DAILY [facility] Last Admin: 03/06/17 08:52 Dose: 81 mg Atorvastatin Calcium (Lipitor) 40 mg PER TUBE HS [facility] Last Admin: 03/05/17 20:48 Dose: 40 mg Carvedilol (Coreg) 12.5 mg PO BID [facility] Clonazepam (Klonopin) 0.5 mg PO HSPRN PRN PRN Reason: Insomnia Last Admin: 03/06/17 01:00 Dose: 0.5 mg Clonidine (Catapres) 0.1 mg PO Q4H PRN PRN Reason: Systolic BP > 180 Clopidogrel Bisulfate (Plavix) 75 mg PER TUBE DAILY [facility] Last Admin: 03/06/17 08:51 Dose: 75 mg Dextrose/Water (Dextrose 50%) 25 gm SLOW IVP PRN PRN PRN Reason: Hypoglycemia Famotidine (Pepcid) 20 mg PO 2100 [facility] Last Admin: 03/05/17 20:47 Dose: 20 mg Furosemide (Lasix) 40 mg PO 0900,1400 [facility] Last Admin: 03/06/17 15:38 Dose: 40 mg Glucagon (Glucagon) 1 mg IM PRN PRN PRN Reason: Hypoglycemia Hydralazine HCl (Apresoline) 10 mg SLOW IVP Q4H PRN PRN Reason: Systolic BP > 180 Hydralazine HCl (Apresoline) 25 mg PO TID [facility] Last Admin: 03/06/17 15:37 Dose: 25 mg Dextrose/Water (D5w) 1,000 mls @ 0 mls/hr IV .Q0M PRN; As Directed PRN Reason: Hypoglycemia Insulin Human Lispro (Humalog) 0 units SC .MILD SLIDING SCALE PRN PRN Reason: Mild Correctional Scale Insulin Human Lispro (Humalog) 0 units SC .BEDTIME SLIDING SC PRN PRN Reason: Bedtime Correctional Scale Isosorbide Dinitrate (Isordil) 20 mg PER TUBE TID [facility] Last Admin: 03/06/17 15:37 Dose: 20 mg Morphine Sulfate (Morphine) 2 mg SLOW IVP Q2H PRN PRN Reason: TO ACHIEVE ELDON SCORE 2-3 Ondansetron HCl (Zofran Odt) 4 mg PO Q6H PRN PRN Reason: Nausea/Vomiting Ondansetron HCl (Zofran) 4 mg IVP Q6H PRN PRN Reason: Nausea/Vomiting Polyethylene Glycol (Miralax) 17 gm PO DAILY [facility] Last Admin: 03/06/17 08:51 Dose: 17 gm Senna/Docusate Sodium (Senokot S) 1 tab PO BID [facility] Last Admin: 03/06/17 08:51 Dose: 1 tab Sodium Chloride (Flush - Normal Saline) 10 ml IVF PRN PRN PRN Reason: Saline Flush
--- NOTE | 2017-03-06 18:04 | PRG ---
DATE OF SERVICE: 03/06/2017 SUBJECTIVE: Harvey feels better today. Her breathing has improved. No chest pain or pressure. PHYSICAL EXAMINATION: VITAL SIGNS: Blood pressure 116/62, pulse 90 regular. LUNGS: Clear. CARDIAC: Normal S1, normal S2. ABDOMEN: Soft, nontender. EXTREMITIES: No edema. ASSESSMENT: 1. Congestive heart failure, systolic, improved clinically today. 2. Pacemaker defibrillator generator at elective replacement indicator. PLAN: 1. Replace pacemaker defibrillator. 2. Go ahead and increase carvedilol. 3. Renal failure is actually somewhat better, creatinine 2.48.
--- NOTE | 2017-03-06 19:49 | PRG ---
DATE OF SERVICE: 03/06/2017 SERVICE: Pulmonary Medicine. INTERVAL HISTORY: The patient is doing fine from a respiratory standpoint. She is breathing very comfortably on 1 liter nasal cannula. She has no specific complaints of fevers, chills, nausea, vomiting or chest discomfort. Otherwise, she is returning to her usual state of health and has no specific complaints. PHYSICAL EXAMINATION: VITAL SIGNS: Afebrile, pulse 91, blood pressure 116/62, respirations 18 and saturation 100% on 1 liter nasal cannula. GENERAL: Patient is awake and alert in no apparent distress. LUNGS: Excellent air entry with no prolonged expiratory phase. Minimal crackles are present bibasilarly. No prolonged expiratory phase, wheezing or rhonchi are appreciated. HEART: Normal rate and regular. ABDOMEN: Soft, nontender and nondistended. Bowel sounds are positive. MUSCULOSKELETAL: No cyanosis or clubbing. Trace pitting in the bilateral lower extremities. GENITOURINARY: No Dailey. NEUROLOGIC: Grossly nonfocal. ASSESSMENT: 1. Acute hypoxic respiratory failure, resolving. 2. Acute on chronic systolic heart failure. 3. Acute on chronic kidney disease, improving. 4. Hypertension. PLAN: At this point, the patient has no further requirements for inpatient Pulmonary Critical Care opinion. As such, we will sign off. Please call with additional questions or concerns moving forward. The patient is hoping to go home on oxygen. Truth be told, I am not certain she is going to qualify based on what I am looking at right now. We should aggressively ambulate her on room air prior to silveira dismissal to see whether or not she does desaturates with ambulation. KALANI
[2017-03-06] MEDS: Atorvastatin Calcium 40 MG TAB PER TUBE SCH (21:12)
[2017-03-06] MEDS: Famotidine 20 MG TAB PO SCH (21:12)
--- NOTE | 2017-03-06 21:24 | CON ---
ELECTROPHYSIOLOGY CONSULTATION REPORT DATE OF CONSULTATION: 03/06/2017 REFERRING PHYSICIAN: Dr. Fuentes. I am seeing Ms. 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 ICD generator at elective replacement indicator. 2. Prior history of BiV-ICD implantation in 2012 with a Medtronic device, adequate lead beat values noted. 3. History of chronic systolic congestive heart failure with ischemic cardiomyopathy. A. 2D echo from 02/15/2017 previous LVEF of 15% to 20%; however dyssynchrony, moderately enlarged le ft atrium, severe mitral regurgitation present. 4. History of advanced renal failure stage IV with hypokalemia. 5. Prior history of cerebrovascular accident. 6. Coronary artery risk factors. A. Hypertension. B. Type 2 diabetes. C. Dyslipidemia. 7. History of chronic obstructive pulmonary disease. 8. History of left eye enucleation. ALLERGIES: None noted. MEDICATIONS: At home include Tylenol, aspirin, Lipitor, carvedilol 25 twice a day, vitamin D, Plavi x, docusate, iron sulfate, Lasix, isosorbide mononitrate, Trajenta, Protonix, Zoloft, sertraline, Zy prexa, bupropion and KlonoPIN. SUBJECTIVE: Ms. Gabriel was admitted on the 4th with recurrent shortness of breath, requiring BiPAP therapy in the ER. She also had some hypercapnic respiratory failure. She was noted to have a wors ening renal function elevated. She eventually was stabilized, now breathing comfortably after extubation. Stabilized on the floor. She denies any chest pains. No fever, chills or cough. No stroke-like symptoms noted. No PND or orthopnea. OBJECTIVE DATA: VITAL SIGNS: Blood pressure 127/69, respiration rate 16 and temperature 98.5. GENERAL: This is an alert and oriented woman in no apparent distress. HEENT: Left eye enucleation is noted. NECK: Supple. Jugular veins are not distended. No carotid bruits. CHEST: Coarse without crackles. CARDIOVASCULAR: Heart sounds are regular to rate and rhythm. S1 and S2 are normal. There is a 2/6 systolic ejection murmur at the mid sternal area. Left subclavian device is in place. ABDOMEN: Benign. Bowel sounds are positive. EXTREMITIES: Lower extremities without edema, clubbing or cyanosis. Pulses are adequate. NEUROLOGIC: Patient is nonfocal. MUSCULOSKELETAL: No joint swelling or deformities. SKIN: Without rash. DATABASE: EKG reveals a ventricularly paced rhythm. No bradycardia. ICD interrogation reveals bat ya status at elective replacement indicator, adequately parameters noted, otherwise of a Medtronic biventricular ICD device no recent ventricular or atrial arrhythmias. Chest x-ray on the 5th, shows small left pleural effusion, no pneumothorax. LABORATORY DATA: White blood cell count is 5.8, hemoglobin is 10.2 and platelet count is 117. Sodi um 140, potassium 3.2, BUN is 39 and creatinine is 2.48. The AST is 61 and 75; this improved from t he 5th when it was 173. ASSESSMENT AND PLAN: Ms. Gabriel is a 66-year-old unfortunate woman with advanced nonischemic cardio myopathy with severely reduced left ventricular systolic function, prior history of biventricular au tomatic implantable cardioverter-defibrillator implant which now at elective replacement indicator. I discussed with her the benefits of biventricular pacing. It would be very reasonable to proceed w ith implantable cardioverter-defibrillator generator change. She understands and is willing to proc eed. Risks and benefits are detailed of chance of infection and bleeding.
[2017-03-07 06:30] LABS: Anion Gap 16 mmol/L (10-20); BUN (Urea Nitrogen) 31 mg/dL (9.8-20.1); Calc. Creatinine Clearance 26 mL/min (70-130); Calcium 9.2 mg/dL (7.8-10.44); Carbon Dioxide 23 mmol/L (23-31); Chloride 105 mmol/L (98-107); Estimated GFR-MDRD 29; Magnesium 1.8 mg/dL (1.6-2.6)
[2017-03-07] MEDS ORDERED: CEFAZOLIN/Water 2 GM/20 ML SYRINGE ONE (06:44)
[2017-03-07] MEDS: Carvedilol 6.25 MG TAB PO SCH ×2 (06:52→21:19)
[2017-03-07] MEDS ORDERED: Propofol 500 MG/50 ML VIAL ONE (07:10)
[2017-03-07] MEDS ORDERED: Norepinephrine 4 MG/4 ML VIAL ONE (07:34)
[2017-03-07] MEDS ORDERED: Glycopyrrolate 0.2 MG/ML 5 ML SYRINGE ONE (07:34)
[2017-03-07] MEDS ORDERED: PHENYLEPHRINE-NS 100 MCG/ML 10 ML SYRINGE ONE ×2 (07:34→07:46)
[2017-03-07] MEDS ORDERED: Propofol 200 MG/20 ML VIAL ONE (07:46)
[2017-03-07] MEDS ORDERED: Ondansetron HCl/PF 4 MG/2 ML Vial IVP PRN (08:47)
[2017-03-07] MEDS ORDERED: Promethazine HCl 25 MG/ML VIAL SLOW IVP PRN (08:47)
[2017-03-07] MEDS ORDERED: Morphine Sulfate 2 MG/ML SYRINGE SLOW IVP PRN (08:47)
[2017-03-07] MEDS: Isosorbide Dinitrate 20 MG TAB PER TUBE SCH ×2 (09:58→15:52)
[2017-03-07] MEDS: hydrALAZINE 25 MG TAB PO SCH ×3 (09:58→21:19)
[2017-03-07] MEDS: Clopidogrel Bisulfate 75 MG TAB PER TUBE SCH (09:59)
[2017-03-07] MEDS: Furosemide 40 MG TAB PO SCH ×2 (09:59→14:10)
[2017-03-07] MEDS: Senokot S 8.6-50 MG TAB PO SCH ×2 (09:59→21:19)
[2017-03-07] MEDS: Polyethylene Glycol 3350 17 GM Packet PO SCH (10:00)
[2017-03-07] MEDS: Cephalexin 250 MG CAP PO SCH ×2 (12:20→18:30)
--- NOTE | 2017-03-07 13:12 | PDOC.PN ---
- Subjective Encounter Start Date: 03/07/17 Encounter Start Time: 12:30 Patient seen and examined. No new complaints. No overnight events. s/p AICD generator change. No CP - Objective Resuscitation Status: Resuscitation Status FULL:Full Resuscitation MAR Reviewed: Yes Vital Signs & Weight: Vital Signs (12 hours) Temp Pulse Resp BP BP Pulse Ox 03/07/17 09:58 91 134/69 03/07/17 06:52 120/58 L 03/07/17 04:00 99.1 F 95 18 127/65 100 Weight Admit Weight 119 lb Weight 132 lb Most Recent Monitor Data Heart Rate from ECG 91 NIBP 122/65 NIBP BP-Mean 71 Respiration from ECG 19 SpO2 99 I&O: 03/06/17 03/07/17 03/08/17 06:59 06:59 06:59 Intake Total 1411 1180 Output Total 600 400 Balance 811 780 Result Diagrams: 03/05/17 03:22 03/07/17 05:46 Additional Labs: Accuchecks 03/07/17 03/07/17 03/06/17 11:16 05:49 19:58 POC Glucose 87 90 93 03/06/17 15:49 POC Glucose 106 EKG Reviewed by me: Yes (Tele Paced) Phys Exam - Physical Examination Constitutional: NAD Respiratory: no wheezing, no rhonchi Cardiovascular: RRR, no rub Gastrointestinal: soft, non-tender, positive bowel sounds Neurological: non-focal, moves all 4 limbs Dx/Plan (1) Acute respiratory failure with hypoxia and hypercapnia Code(s): J96.01 - ACUTE RESPIRATORY FAILURE WITH HYPOXIA; J96.02 - ACUTE RESPIRATORY FAILURE WITH HYPERCAPNIA Status: Acute Comment: improved (2) Acute on chronic systolic CHF (congestive heart failure) Code(s): I50.23 - ACUTE ON CHRONIC SYSTOLIC (CONGESTIVE) HEART FAILURE Status : Acute Comment: improving. No ACEI/ARB due to renal failure (3) DM2 (diabetes mellitus, type 2) Status: Chronic Qualifiers: Diabetes mellitus complication status: with kidney complications Diabetes mellitus complication detail: with chronic kidney disease Chronic kidney disease stage: stage 4 (severe) (4) HTN (hypertension) Code(s): I10 - ESSENTIAL (PRIMARY) HYPERTENSION Status: Chronic Qualifiers: Hypertension type: essential hypertension Qualified Code(s): I10 - Essential (primary) hypertension (5) Elevated troponin Code(s): R74.8 - ABNORMAL LEVELS OF OTHER SERUM ENZYMES Status: Acute Comment: prob due to CHF (6) Hypokalemia Code(s): E87.6 - HYPOKALEMIA Status: Acute (7) Implantable cardioverter-defibrillator generator end of life Code(s): Z45.02 - ENCNTR FOR ADJUST AND MGMT OF AUTOMATIC IMPLNTBL CARD DEFIB Status: Acute Comment: s/p change 03/07 (8) Other issues per previous notes Comment: GERD, Dyslipidemia, Abn LFTs due to passive hepatic congestion - Plan cont current plan of care, out of bed/ambulate, DVT proph w/SCDs * Cont supportive care * Cont current meds as below * DC home when cleared by Cardiology * Counselled on HF * Home O2 eval at dc Review of Systems - Review of Systems Constitutional: negative: Fever, Chills, Sweats, Weakness, Malaise, Other Respiratory: negative: Cough, Dry, Shortness of Breath, Hemoptysis, SOB with Excertion, Pleuritic Pain, Sputum, Wheezing Cardiovascular: negative: Chest Pain, Palpitations, Orthopnea, Paroxysmal Noc. Dyspnea, Edema, Light Headedness, Other Gastrointestinal: negative: Nausea, Vomiting, Abdominal Pain, Diarrhea, Constipation, Melena, Hematochezia, Other - Medications/Allergies Allergies/Adverse Reactions: Allergies Allergy/AdvReac Type Severity Reaction Status Date / Time No Known Allergies Allergy Verified 02/25/17 22:53 Medications: Current Medications Acetaminophen (Tylenol) 650 mg OR Q4H PRN PRN Reason: Headache/Fever or Mild Pain Acetaminophen (Tylenol) 650 mg PO Q4H PRN PRN Reason: Pain Last Admin: 03/05/17 19:37 Dose: 650 mg Albuterol/Ipratropium (Duoneb) 3 ml NEB [id number] PRN PRN Reason: SOB &/or Wheezing Aspirin (Aspirin Chewable) 81 mg PER TUBE DAILY [facility] Last Admin: 03/07/17 09:59 Dose: 81 mg Atorvastatin Calcium (Lipitor) 40 mg PER TUBE HS [facility] Last Admin: 03/06/17 21:12 Dose: 40 mg Carvedilol (Coreg) 12.5 mg PO BID [facility] Last Admin: 03/07/17 06:52 Dose: 12.5 mg Cephalexin (Keflex) 500 mg PO Q6HR [facility] Stop: 03/14/17 06:01 Clonazepam (Klonopin) 0.5 mg PO HSPRN PRN PRN Reason: Insomnia Last Admin: 03/06/17 01:00 Dose: 0.5 mg Clonidine (Catapres) 0.1 mg PO Q4H PRN PRN Reason: Systolic BP > 180 Clopidogrel Bisulfate (Plavix) 75 mg PER TUBE DAILY [facility] Last Admin: 03/07/17 09:59 Dose: 75 mg Dextrose/Water (Dextrose 50%) 25 gm SLOW IVP PRN PRN PRN Reason: Hypoglycemia Famotidine (Pepcid) 20 mg PO 2100 [facility] Last Admin: 03/06/17 21:12 Dose: 20 mg Furosemide (Lasix) 40 mg PO 0900,1400 [facility] Last Admin: 03/07/17 09:59 Dose: 40 mg Glucagon (Glucagon) 1 mg IM PRN PRN PRN Reason: Hypoglycemia Hydralazine HCl (Apresoline) 10 mg SLOW IVP Q4H PRN PRN Reason: Systolic BP > 180 Hydralazine HCl (Apresoline) 25 mg PO TID [facility] Last Admin: 03/07/17 09:58 Dose: 25 mg Dextrose/Water (D5w) 1,000 mls @ 0 mls/hr IV .Q0M PRN; As Directed PRN Reason: Hypoglycemia Insulin Human Lispro (Humalog) 0 units SC .MILD SLIDING SCALE PRN PRN Reason: Mild Correctional Scale Insulin Human Lispro (Humalog) 0 units SC .BEDTIME SLIDING SC PRN PRN Reason: Bedtime Correctional Scale Isosorbide Dinitrate (Isordil) 20 mg PER TUBE TID [facility] Last Admin: 03/07/17 09:58 Dose: 20 mg Morphine Sulfate (Morphine) 2 mg SLOW IVP Q2H PRN PRN Reason: TO ACHIEVE ELDON SCORE 2-3 Ondansetron HCl (Zofran Odt) 4 mg PO Q6H PRN PRN Reason: Nausea/Vomiting Ondansetron HCl (Zofran) 4 mg IVP Q6H PRN PRN Reason: Nausea/Vomiting Polyethylene Glycol (Miralax) 17 gm PO DAILY [facility] Last Admin: 03/07/17 10:00 Dose: Not Given Senna/Docusate Sodium (Senokot S) 1 tab PO BID [facility] Last Admin: 03/07/17 09:59 Dose: 1 tab Sodium Chloride (Flush - Normal Saline) 10 ml IVF PRN PRN PRN Reason: Saline Flush
[2017-03-07 14:15] VITALS: BMI 22.6
[2017-03-07] MEDS ORDERED: Atorvastatin Calcium 40 MG TAB PO SCH (21:00)
[2017-03-07] MEDS: Famotidine 20 MG TAB PO SCH (21:19)
[2017-03-07] MEDS: Isosorbide Dinitrate 20 MG TAB PO SCH (21:20)
[2017-03-07] MEDS: Acetaminophen 325 MG TAB PO PRN (21:20)
[2017-03-08] MEDS: Cephalexin 250 MG CAP PO SCH ×4 (00:12→18:30)
[2017-03-08] MEDS: Carvedilol 6.25 MG TAB PO SCH (08:55)
[2017-03-08] MEDS: Senokot S 8.6-50 MG TAB PO SCH (08:55)
[2017-03-08] MEDS: Acetaminophen 325 MG TAB PO PRN (08:55)
[2017-03-08] MEDS: Isosorbide Dinitrate 20 MG TAB PO SCH ×2 (08:55→14:45)
[2017-03-08] MEDS: hydrALAZINE 25 MG TAB PO SCH ×2 (08:56→14:44)
[2017-03-08] MEDS: Furosemide 40 MG TAB PO SCH ×2 (08:56→14:44)
[2017-03-08] MEDS: Polyethylene Glycol 3350 17 GM Packet PO SCH (08:57)
--- NOTE | 2017-03-08 08:59 | PRG ---
DATE OF SERVICE: 03/08/2017 Gilma Gabriel is doing okay today. She does look somewhat frail, but has no complaints. PHYSICAL EXAMINATION: VITAL SIGNS: Blood pressure 108/55, pulse 93, regular. LUNGS: Clear. CARDIAC: Normal S1, normal S2. ABDOMEN: Soft, nontender. EXTREMITIES: There is no edema. ASSESSMENT: 1. Congestive heart failure, systolic, severe compensated currently. 2. Status post biventricular pacemaker defibrillator generator changed. PLAN: Okay with me to go home to see me in about a month. Also, she will have her followup arrange d with Dr. Fuller, Electrophysiology.
[2017-03-08] MEDS ORDERED: Clopidogrel Bisulfate 75 MG TAB PO SCH (09:00)
[2017-03-08 11:58] VITALS: BP 125/63; TEMP 99.5
--- NOTE | 2017-03-08 16:01 | DIS ---
DATE OF ADMISSION: 03/02/2017 DATE OF DISCHARGE: 03/08/2017 DISCHARGE DIAGNOSES: 1. Status post acute hypoxemic hypercapnic respiratory failure secondary to acute on chronic systol ic congestive heart failure with an ejection fraction of 15% to 20%, resolved. 2. Acute on chronic systolic congestive heart failure with an ejection fraction of 15% to 20%. 3. Severe mitral valve regurgitation. 4. Hypokalemia, improved. 5. Status post AICD generator replacement on 03/07/2017. 6. Elevated troponin I secondary to demand ischemia and congestive heart failure. 7. Diabetes mellitus type 2. 8. Chronic kidney disease stage 4. 9. Chronic normocytic anemia, stable. CONSULTATIONS: Dr. Fuentes with Cardiology Service. Dr. Fuller with Electrophysiology Service. Dr. Pratima schofield with Pulmonology Service. PERTINENT LABORATORY AND X-RAY FINDINGS: Creatinine ranged between 2.04-2.99 with estimated GFR ran ging between 21-29, lactic acid level 1.1, phosphorus 3.0, magnesium 1.8, calcium 9.2, potassium ran ged between 3.2-4.2. CBC showed a hemoglobin ranging between 10.2-12.0. Portable chest x-ray dated 03/02/2017 showed no acute cardiopulmonary process. Chronic changes noted. Portable chest x-ray d ated 03/03/2017 showed interval extubation with the removal of the enteric tube. HOSPITAL COURSE: The patient was initially admitted to the Critical Care Unit after presenting with acute hypoxemic respiratory failure in the context of severe systolic congestive heart failure with an ejection fraction of 15% to 20%. The patient was initially given a trial of BiPAP noninvasive m echanical ventilation with subsequent failure proceeding to intubation and mechanical ventilation. The patient continued on aggressive IV diuretic therapy with appropriate diuresis. The patient was intubated for approximately 24 hours extubating without complication. The patient transferred from the Critical Care Unit to the telemetry unit undergoing evaluation of current AICD device with end o f life need for a battery exchange. The patient was evaluated by the Electrophysiology Service with subsequent AICD generator replacement on 03/07/2017. The patient tolerated the procedure and was n oted with normal functioning device postoperatively. The patient was adjusted on her chronic medica tion regimen and overall remained euvolemic. The patient received electrolyte replacement for hypok alemia and overall renal function remained stable in the context of known chronic kidney disease sta ge 4. The patient is overall clinically stable and ready for discharge on 03/08/2017. DISCHARGE MEDICATIONS: 1. Enteric coated aspirin 81 mg 1 tab p.o. daily. 2. Lipitor 40 mg 1 tab p.o. daily. 3. Coreg 12.5 mg p.o. b.i.d. 4. Keflex 500 mg p.o. q.i.d. x7 days. 5. Vitamin D3 1000 units p.o. daily. 6. Plavix 75 mg 1 tab p.o. daily. 7. Docusate sodium 100 mg p.o. q. 48 hours. 8. Ferrous sulfate 325 mg p.o. daily. 9. Lasix 40 mg 1 tab p.o. b.i.d. 10. Imdur 60 mg p.o. daily. 11. Tradjenta 5 mg p.o. daily. 12. Protonix 40 mg 1 tab p.o. daily. 13. Sertraline 150 mg p.o. daily. 14. Ziprasidone 40 mg p.o. at bedtime. 15. Bupropion XL 300 mg p.o. daily. 16. Klonopin 0.5 mg p.o. at bedtime. 17. Hydralazine 25 mg p.o. t.i.d. FOLLOWUP: The patient will follow up with her primary care provider, Dr. Zane Giles, within 7 day s of discharge. The patient will follow up with Dr. Nury Fuentes with [facility] Cardiology [facility] vice 3-4 weeks after discharge. The patient may also follow with Dr. Fuller with Electrophysiology [facility] and to call his office for appointment time and date. CONDITION ON DISCHARGE: Guarded. ACTIVITY: Ad shanique. DIET: Heart healthy and ADA. SPECIAL INSTRUCTIONS: The patient will be set up for outpatient cardiac rehabilitation services. CODE STATUS: Do not resuscitate with out of hospital DNR signed. DISPOSITION: Discharge home 03/08/2017. Total time preparing and coordinating discharge is 34 minutes.
--- NOTE | 2017-04-06 16:10 | EKG ---
Test Reason : Blood Pressure : / mmHG Vent. Rate : 091 BPM Atrial Rate : 091 BPM P-R Int : 158 ms QRS Dur : 148 ms QT Int : 420 ms P-R-T Axes : -14 -06 044 degrees QTc Int : 516 ms Electronic ventricular pacemaker Confirmed by JENNIFER CRISTOBAL, SAHARA Ayers ([id number]), offline editor VIVI LOPEZ ([id number]) on 04/06/2017 4:10:02 PM Referred By: Confirmed By:SAHARA RODRIGUEZ MD
== END 2017-03-08 18:32 | disposition home health service (06) | DRG 245 ==
LOC: ERS 02:53 → CCU 04:30 → 2NO 03-05 15:44
PROVIDERS: ADMIT Family Medicine; ATTEND Family Medicine
PROC: 0BH17EZ Insertion of Endotracheal Airway into Trachea, Via Natural or Artificial Opening (ICD-10-PCS; principal; 2017-03-02)
PROC: 5A1935Z Respiratory Ventilation, Less than 24 Consecutive Hours (ICD-10-PCS; 2017-03-02)
PROC: 5A09357 Assistance with Respiratory Ventilation, Less than 24 Consecutive Hours, Continuous Positive Airway Pressure (ICD-10-PCS; 2017-03-02)
PROC: 06HY33Z Insertion of Infusion Device into Lower Vein, Percutaneous Approach (ICD-10-PCS; 2017-03-02)
PROC: 0JH609Z Insertion of Cardiac Resynchronization Defibrillator Pulse Generator into Chest Subcutaneous Tissue and Fascia, Open Approach (ICD-10-PCS; 2017-03-07)
PROC: 0JPT0PZ Removal of Cardiac Rhythm Related Device from Trunk Subcutaneous Tissue and Fascia, Open Approach (ICD-10-PCS; 2017-03-07)
DX: I13.0 Hypertensive heart and chronic kidney disease with heart failure and stage 1 through stage 4 chronic kidney disease, or unspecified chronic kidney disease (principal); J96.21 Acute and chronic respiratory failure with hypoxia; N17.9 Acute kidney failure, unspecified; N18.4 Chronic kidney disease, stage 4 (severe); I42.9 Cardiomyopathy, unspecified; I24.8 Other forms of acute ischemic heart disease; K76.1 Chronic passive congestion of liver; E11.22 Type 2 diabetes mellitus with diabetic chronic kidney disease; I50.23 Acute on chronic systolic (congestive) heart failure; J96.22 Acute and chronic respiratory failure with hypercapnia; Z79.84 Long term (current) use of oral hypoglycemic drugs; J44.9 Chronic obstructive pulmonary disease, unspecified; E78.5 Hyperlipidemia, unspecified; K21.9 Gastro-esophageal reflux disease without esophagitis; Z79.82 Long term (current) use of aspirin; E87.6 Hypokalemia; I34.0 Nonrheumatic mitral (valve) insufficiency; D64.9 Anemia, unspecified; Z45.02 Encounter for adjustment and management of automatic implantable cardiac defibrillator; Z66 Do not resuscitate; Z94.7 Corneal transplant status
CPT/HCPCS: 31500; 33264; 36415; 36416; 36556; 51702; 71010; 80053; 80069; 82550; 82553; 82805; 83605; 83735; 83880; 84100; 84484; 85007; 85025; 85027; 93005; 93641; 93798; 94002; 94003; 94640; 94660; 94760; 96365; 96366; 96375; A4216; C1882; J1940; J2060; J2704; J3010; J3490; J7620; S0028